=== PATIENT | male | born 1945 | race Caucasian/White ===

== ENCOUNTER 2017-12-05 07:40 | Outpatient (CLI) | payer BC, MEDICARE ==
--- NOTE | 2017-12-05 09:14 | RAD ---
RIGHT KNEE 4 VIEWS: HISTORY: Acute pain in the right knee. Fell off truck. FINDINGS: There are postop changes of total knee arthroplasty in good position and alignment. The metallic denise dware is intact. No acute fracture or dislocation is seen. Vascular calcifications are present. POS: [facility]
== END 2017-12-05 07:41 | disposition home or self-care (01) ==
LOC: TBSIIMAG 07:40
PROVIDERS: ATTEND Family Medicine
DX: M25.561 Pain in right knee (principal)

== ENCOUNTER 2018-01-10 10:07 | Outpatient (CLI) | payer MEDICARE | END 2018-01-10 10:08 | disposition home or self-care (01) | LOC: BICULT 10:07 | PROVIDERS: ATTEND Urology | DX: N43.3 Hydrocele, unspecified (principal); N50.3 Cyst of epididymis | CPT/HCPCS: 76870; 93976 ==

== ENCOUNTER 2018-02-15 11:35 | Outpatient (CLI) | payer MEDICARE | END 2018-02-15 11:36 | disposition home or self-care (01) | LOC: BICULT 11:35 | PROVIDERS: ATTEND Urology | DX: N39.0 Urinary tract infection, site not specified (principal) | CPT/HCPCS: 76770 ==

== ENCOUNTER 2018-04-09 10:27 | Outpatient (CLI) | payer MEDICARE ==
[2018-04-09 11:59] LABS: Hemoglobin 13.7 g/dL (14.0-18.0); Mean Corpuscular HGB CONC 34.6 g/dL (32.0-36.0); Mean Corpuscular Hemoglobin 31.8 pg (27.0-31.0); Mean Corpuscular Volume 91.9 fL (78.0-98.0); Mean Platelet Volume 6.7 fL (7.4-10.4); Platelet Count 293 thou/uL (130-400); RBC Distribution Width 12.7 % (11.5-14.5); Red Blood Cell (RBC) Count 4.32 mill/uL (4.70-6.10); White Blood Cell (WBC) Count 10.7 thou/uL (4.8-10.8)
[2018-04-09 12:14] LABS: Anion Gap 17 mmol/L (10-20); BUN (Urea Nitrogen) 21 mg/dL (8.4-25.7); Calc. Creatinine Clearance 0 mL/min (70-130); Calcium 10.2 mg/dL (7.8-10.44); Carbon Dioxide 23 mmol/L (23-31); Chloride 101 mmol/L (98-107); Estimated GFR-MDRD 63; Glucose 123 mg/dL (83-110); Potassium 4.5 mmol/L (3.5-5.1); Sodium 136 mmol/L (136-145)
== END 2018-04-09 10:28 | disposition home or self-care (01) ==
LOC: LABBT 10:27
PROVIDERS: ATTEND Urology
DX: Z01.812 Encounter for preprocedural laboratory examination (principal); N40.1 Benign prostatic hyperplasia with lower urinary tract symptoms; N39.0 Urinary tract infection, site not specified; N43.3 Hydrocele, unspecified; R35.0 Frequency of micturition
CPT/HCPCS: 80048; 85027

== ENCOUNTER → 2018-04-17 | Day surgery (SDC) | payer MEDICARE ==
[2018-04-09 11:14] VITALS: BMI 42.0
[~2018-04-17] MED LIST: B & O 30 MG SUPP ONE; Dexamethasone 20 MG/5 ML VIAL ONE; Furosemide 20 MG/2 ML VIAL ONE; Ketamine 50 MG/ML VIAL ONE; Levofloxacin 500 mg/D5W 100 ml Premix Bag ONE; Midazolam HCl 2 mg/2 ml Vial ONE; Morphine 4 MG/ML VIAL ONE; Ondansetron HCl/PF 4 MG/2 ML Vial ONE; PROPOFOL 200 MG/20 ML VIAL ONE; Promethazine HCl 25 MG/ML VIAL ONE
--- NOTE | 2018-04-17 12:26 | OP ---
DATE OF PROCEDURE: 04/17/2018 PREOPERATIVE DIAGNOSES: Benign prostatic hypertrophy with infections. POSTOPERATIVE DIAGNOSES: Benign prostatic hypertrophy with infections. PROCEDURE: GreenLight laser vaporization of the prostate with enucleation of the middle lobe using 1 92,371 joules. No complications. SURGEON: Dr. Radha Barnhart SPECIMEN: Prostate. ANESTHESIA: General with laryngeal mask airway. FINDINGS: Adequate opening up of the prostatic urethra and a good stream noted at the end. DRAINS REMAINING: A 20-Colombian 2-way. INDICATIONS: The patient is a 73-year-old male who was followed in the office for multiple issues including recurrent infections shown to have significant BPH. He also had a hydrocele and was uncir cumcised and we discussed surgery for these things as well, but I did not recommend a hydrocelectomy in order to push for a circumcision as he has a partially buried penis and I am not sure just a circu mcision would alleviate that so we proceeded with just GreenLight. The patient was brought into the room by Anesthesia, laid on the table in the supine position. After receiving general anesthetic, legs were placed in lithotomy position and his perineum was prepped an d draped in sterile fashion. Using a 25 Colombian cystoscope and 30 degree lens, urethra was traversed and the bladder inspected. No lesions were noted. The ureteral orifices were identified and preserv ed throughout the case. The middle lobe was then enucleated in small enough pieces that were able to be evacuated out. The lateral lobes and the middle lobe near the veru were quite puffy or intruding so care was taken in order to take these down without injuring the opposite or obstructing gland denise t was pressing in the same area. Power of 80 was used near the bladder neck. Power level of 180 wa s used to the mid gland. The trigonal ridge was taken down to the level of the floor of the bladder near the end of the case using a power of 80. All chips were ensured to be out. Hemostasis was ensu red with the decompressed bladder and the scope had already been taken out once and a good stream not ed so when the scope was put back in, all chips were ensured to be out. No bleeding was noted and so the scope was removed a final time and a 20 Colombian catheter placed to gravity. The patient tolerate d the procedure well and was then awakened and transferred to PACU in stable condition.
== END ==
LOC: SDC 05:49
PROVIDERS: ATTEND Urology
PROC: 0VB08ZZ Excision of Prostate, Via Natural or Artificial Opening Endoscopic (ICD-10-PCS; principal; 2018-04-17)
DX: N40.1 Benign prostatic hyperplasia with lower urinary tract symptoms (principal); N39.41 Urge incontinence; R35.1 Nocturia; R39.11 Hesitancy of micturition; N52.9 Male erectile dysfunction, unspecified; N43.3 Hydrocele, unspecified; E11.9 Type 2 diabetes mellitus without complications; I48.91 Unspecified atrial fibrillation; E78.5 Hyperlipidemia, unspecified; I10 Essential (primary) hypertension; Z79.01 Long term (current) use of anticoagulants; Z79.84 Long term (current) use of oral hypoglycemic drugs; Z79.899 Other long term (current) drug therapy; Z88.1 Allergy status to other antibiotic agents; Z88.2 Allergy status to sulfonamides; Z88.8 Allergy status to other drugs, medicaments and biological substances; Z96.651 Presence of right artificial knee joint
CPT/HCPCS: 88305; 96374; 96375; J1940; J1956; J2250; J2270; J2550

== ENCOUNTER 2019-06-11 10:31 | Outpatient (CLI) | payer MEDICARE ==
--- NOTE | 2019-06-11 14:51 | NM ---
Radionucleotide three-phase bone scan HISTORY: Worsening knee pain. Prior knee replacement. FINDINGS: Heterogeneous uptake at the shoulders, sternoclavicular joints, spine, left knee, and feet. Consistent with degenerative changes. Uptake at the left mandible has the appearance of chronic dental disease. On the blood flow images and blood pool images, increased uptake about the right knee is present, abdiaziz rounding a central photopenic defect consistent with metallic prosthesis. Delayed spot images of the knees show a focal area of markedly increased radiotracer uptake along the far medial margin of t he right medial tibial plateau with otherwise heterogeneously increased uptake involving the distal femur and proximal tibia. Degenerative type uptake about the left knee is also noted. The abnormality of the right knee is less conspicuous on the whole-body images. IMPRESSION: Three-phase increased uptake around the right knee/prosthesis. Suggestive of an acute pro cess such as infection or loosening. Please correlate with current knee radiographs and clinical status. Widespread degenerative type abnormality. Left mandibular uptake likely related to dental disease.
== END 2019-06-11 10:32 | disposition home or self-care (01) ==
LOC: NM 10:31
PROVIDERS: ATTEND Family Medicine
DX: T84.84XA Pain due to internal orthopedic prosthetic devices, implants and grafts, initial encounter (principal); M25.561 Pain in right knee
CPT/HCPCS: 78315; A9503

== ENCOUNTER 2020-06-15 05:27 | Emergency (ER) | payer MEDICARE ==
[2020-06-15] MEDS ORDERED: HYDROcodone/Acetaminophen 5/325 mg Tablet ONE (05:50)
--- NOTE | 2020-06-15 07:17 | CT ---
PRELIMINARY REPORT/[facility]/EMERGENCY AFTER HOURS PROCEDURE EXAM: CT Head Without Intravenous Contrast. CLINICAL HISTORY: Patient presents after a fall while at rehab. He was getting out of bed when he thought his walker wa s locked. It was not and it rolled out from under him causing him to fall to the ground TECHNIQUE: Axial computed tomography images of the head/brain without intravenous contrast. COMPARISON: None provided. FINDINGS: BRAIN: No acute intraparenchymal hemorrhage. No mass lesion. No CT evidence for acute territorial infarct. N o midline shift or extra-axial collection. Some focal encephalomalacia in the right frontal lobe. VENTRICLES: No hydrocephalus. ORBITS: The orbits are unremarkable. SINUSES AND MASTOIDS: The paranasal sinuses and mastoid air cells are clear. SOFT TISSUES: No significant facial or scalp soft tissue swelling evident. No radiopaque foreign body is seen. BONES: No acute skull fracture. IMPRESSION: No acute intracranial abnormality. ELECTRONICALLY SIGNED BY: Fernando Goss MD Jun 15, 2020 6:03:58 AM TRADING ANALYST This report is intended for review by the ordering physician only, in accordance of law. If you recei ve this report in error, please call [facility] at [phone]. FINAL REPORT Exam: Head CT without contrast HISTORY: Fall. Trauma. Pain. COMPARISON: none FINDINGS: Hemorrhage: No intraparenchymal hemorrhage or extra-axial hematoma. Brain parenchyma: Cortical bean-white matter differentiation is preserved. No mass effect or midline shift. Basilar cisterns are patent.Right frontal lobe encephalomalacia and gliosis, due to remote insult. Ventricular system: Ventricles and sulci are patent and symmetric. Calvarium: Intact. Sinuses and mastoid air cells: Adequate aeration. IMPRESSION: 1. This report is in agreement with initial report by [facility]. 2. No acute intracranial process. Code QA Transcribed Date/Time: 06/15/2020 7:44 AM
--- NOTE | 2020-06-15 07:54 | RAD ---
RADIOGRAPH RIGHT KNEE 4 VIEWS: DATE: 06/15/2020 HISTORY: 75-year-old male with acute traumatic right knee pain due to fall FINDINGS: Resurfacing changes of articular surfaces of distal femur, patella, and tibial plateau. Metallic pros theses cover the resurfaced articular surfaces of distal femur. Edema or hematoma in the soft tissues of the thigh and knee indicate either recent status of surgery, acute traumatic soft tissue i njury, or combination of both. Anterior skin wong are present. Visible only on the lateral view, there is curvilinear lucency at the posterior aspect of the proximal tibial metaphysis. This may or m ay not be a nondisplaced acute fracture. The presence of cement and absence of recently removed hardware from the proximal tibia, together with diffuse osteopenia, decreases the sensitivity in the detection for nondisplaced and mildly displaced acute fractures. No grossly displaced fracture is seen. IMPRESSION: 1. Very recently status post total right knee replacement arthroplasty or removal of metallic hardwar e from proximal tibia. 2. Questionable nondisplaced acute fracture of proximal tibial metaphysis. 3.) Recommend short interval follow-up.
== END 2020-06-15 07:42 | disposition home or self-care (01) ==
LOC: ERS 05:27
DX: S51.012A Laceration without foreign body of left elbow, initial encounter (principal); M25.561 Pain in right knee; E03.9 Hypothyroidism, unspecified; E78.5 Hyperlipidemia, unspecified; I10 Essential (primary) hypertension; E11.9 Type 2 diabetes mellitus without complications; Z79.899 Other long term (current) drug therapy; W06.XXXA Fall from bed, initial encounter
CPT/HCPCS: 70450

== ENCOUNTER 2020-08-20 04:24 | Inpatient (IN) | payer MEDICARE ==
[2020-08-20] MEDS ORDERED: Acetaminophen 500 MG TAB ONE (05:15)
[2020-08-20 05:31] LABS: ALT (SGPT) Less than 7 U/L (8-55); AST (SGOT) 9 U/L (5-34); Albumin 3.7 g/dL (3.4-4.8); Alkaline Phosphatase 60 U/L (40-110); Anion Gap 20 mmol/L (10-20); BUN (Urea Nitrogen) 18 mg/dL (8.4-25.7); Bilirubin, Total 0.9 mg/dL (0.2-1.2); CK (CPK) 83 U/L (30-200); Calc. Creatinine Clearance 0 mL/min (70-130); Calcium 9.2 mg/dL (7.8-10.44); Carbon Dioxide 20 mmol/L (23-31); Chloride 97 mmol/L (98-107); Globulin 3.9 g/dL (2.4-3.5); Glucose 176 mg/dL (83-110); Potassium 3.5 mmol/L (3.5-5.1); Protein, Total 7.6 g/dL (5.8-8.1); Sodium 133 mmol/L (136-145)
[2020-08-20 05:48] LABS: Hemoglobin 11.1 g/dL (14.0-18.0); Mean Corpuscular HGB CONC 32.8 g/dL (32.0-36.0); Mean Corpuscular Hemoglobin 30.1 pg (27.0-31.0); Mean Corpuscular Volume 91.9 fL (78.0-98.0); Mean Platelet Volume 7.2 fL (7.4-10.4); Platelet Count 347 thou/uL (130-400); RBC Distribution Width 14.6 % (11.5-14.5); Red Blood Cell (RBC) Count 3.69 mill/uL (4.70-6.10)
[2020-08-20 05:49] LABS: Band 23 % (5-11); Eosinophils 1 % (0-10); Lymphocytes 4 % (21-51); MDiff Complete? YES; Monocytes 5 % (0-10); Neutrophil 67 % (42-75)
[2020-08-20] MEDS ORDERED: Vancomycin 1 GM/200 ML BAG ONE (06:04)
[2020-08-20] MEDS ORDERED: Cefepime 2 GM VIAL ONE ×2 (06:04→06:06)
[2020-08-20 07:52] LABS: SARS-CoV-2 NAA Rapid Test Not Detected (NotDetected)
[2020-08-20] MEDS ORDERED: Acetaminophen 650 MG Suppository PR PRN (08:03)
[2020-08-20] MEDS ORDERED: Acetaminophen 325 MG TAB PO PRN (08:03)
[2020-08-20 08:05] LABS: Bilirubin Negative (Negative); Blood, Urine Negative (Negative); Clarity Clear (Clear); Glucose, Urine (Dipstick) Normal (Negative); Ketone, Urine Negative (Negative); Leukocyte Negative Leu/uL (Negative); Nitrite Negative (Negative); Protein, Urine (Dipstick) Negative (Neg-Trace); Specific Gravity, Urine 1.013 (1.002-1.036); Urobilinogen Normal mg/dL (Less than 2)
[2020-08-20] MEDS ORDERED: Dextrose 50% Abboject 50 ML SYRINGE SLOW IVP PRN (08:09)
[2020-08-20] MEDS ORDERED: HumaLOG 300 UNITS/3 ML VIAL SC PRN ×2 (08:09)
[2020-08-20] MEDS ORDERED: Dextrose 5% in Water 1,000 ML IV PRN (08:09)
--- NOTE | 2020-08-20 08:32 | RAD ---
RADIOGRAPH CHEST 1 VIEW: DATE: 08/20/2020 TIME: 4:38 AM HISTORY: 75-year-old male with chest pain COMPARISON: none FINDINGS: Cardiomegaly. Mild faint patchy small infiltrate at right base, and at left midlung zone. No pneumothorax. Hypoinflated lungs. IMPRESSION: 1) cardiomegaly. 2) mild infiltrates
--- NOTE | 2020-08-20 08:33 | PDOC.HHP ---
Hospitalist HPI - History of Present Illness History of Present Illness: ADMISSION DATE: 08/20/2020 TIME OF ASSESSMENT: 0730 PRIMARY CARE PHYSICIAN: Dr. Jaskaran Coronel CHIEF COMPLAINT: Generalized weakness and presyncope HPI: This is a 75-year-old gentleman who was brought into the emergency department via EMS for sudden generalized weakness and feeling as if he was going to pass out. He apparently got up to use the bathroom early hours this morning and suddenly felt weak. He leaned over and rested his head on the sink but was unable to stand or move. He banged on the wall to get his 's attention who then was able to bring a chair for him to sit on. He did not fall or lose consciousness at any time. Was not disoriented but states he does if he began feeling unwell prior to this episode. In recent days he has been experiencing occasional left-sided stabbing chest pain which she says lasts a few seconds. At times it wakes him up from his sleep which prompted him to get up and walk to the bathroom. He is unsure if he had a similar episode this morning. He was seen by Dr. Veronica who prescribed Protonix yesterday, which patient has yet to start. He was previously on Prilosec but has not been taking it recently. According to his daughter who is at bedside the patient has had some general deconditioning since May 2020 after having a right knee replacement. He was requiring more help which prompted the family to move in and take turns caring for him as well as his . Since 2 weeks ago his self-care as well as his 's have improved which prompted their children to move back to their respective homes however they do check on them daily and home health assistance is in place. The patient was noted by family to have slight slurring of his speech and it wasn't until recently that his revealed an episode this past summer in which he developed acute unresponsiveness though awake followed by slurred speech and dysgraphia while writing a check. The symptoms improved and he did not seek medical attention. Since that time he has had some residual slurring. At present he denies experiencing any chest pain. Denies any extremity weakness or numbness. No facial weakness or numbness. Further changes with his speech have not been noted. He denies any dizziness or spinning sensation. No headaches. He has had a persistent dry cough but no associated shortness of breath or hemoptysis. Denies any urinary complaints and has had normal bowel movements. He has been dealing with a decreased appetite for the last few weeks but denies any nausea or vomiting. All other review of systems are negative. ED COURSE: Per EMS reports the patient did experience chest pain prior to getting up and walking to the bathroom. His blood pressure with EMS was 88/52 and heart rate was 110. It did improve to 130/90. EKG done in the emergency department showed atrial fibrillation with controlled ventricular response. Heart rate 100. Chest x-ray done showed mild cardiomegaly and prominent pulmonary vasculature. Laboratory studies done demonstrated a white cell count of 20, hemoglobin 11.1, hematocrit 33.9, platelets 347, bands 23%. Sodium 133, potassium 3.5, BUN 18, creatinine 1.53, GFR 44, glucose 126, lactic acid 1.9, LFTs normal, troponin negative, CK 83, BNP 383.9, albumin 3.7. He was started on IV antibiotics with cefepime and vancomycin for unknown source of infection. Urinalysis and urine culture were done, results pending. Blood cultures done as well and pending. PAST MEDICAL HISTORY: 1. Hypothyroidism 2. Hyperlipidemia 3. Essential hypertension 4. Chronic atrial fibrillation 5. BPH 6. Type 2 diabetes myelitis 7. Sleep apnea 8. Osteoarthritis 9. Obesity PAST SURGICAL HISTORY: 1. Status post right total knee replacement 2. BPH surgery SOCIAL HISTORY: Patient lives at home with his and both have assistance through home health. He walks using a walker since the knee replacement. Denies any tobacco use or alcohol consumption. FAMILY HISTORY: Noncontributory ALLERGIES: Cipro Ibuprofen Sulfa CURRENT MEDICATIONS: 1. Tylenol with codeine 2. Amlodipine 10 mg p.o. daily 3. Eliquis 5 mg p.o. twice daily 4. Lisinopril 10 mg p.o. daily 5. Metformin 1000 mg p.o. twice daily 6. Potassium chloride 20 mEq p.o. daily 7. Senna 2 tablets p.o. twice daily 8. Simvastatin 40 mg p.o. daily 9. Bisoprolol fumarate 10 mg p.o. daily 10. Fenofibrate 145 mg p.o. daily 11. Ferrous gluconate 324 mg p.o. twice daily 12. Flexeril 5 mg p.o. twice daily 13. Lidocaine patch 14. Oxybutynin 10 mg p.o. at bedtime 15. Finasteride 5 mg p.o. daily 16. Furosemide 40 mg p.o. twice daily 17. Levothyroxine 75 mcg p.o. daily 18. Terazosin 10 mg p.o. daily 19. Thera M 1 tablet p.o. daily - Exam General Appearance: NAD, awake alert General - other findings: VS: Temp 98, HR 93, BP 109/54, RR 20, O2 sat 96% on room air. Eye: PERRL, anicteric sclera ENT: normocephalic atraumatic, no oropharyngeal lesions Neck: supple, no lymphadenopathy Heart: RRR, normal peripheral pulses Respiratory: CTAB, no wheezes, no rales, no ronchi, normal chest expansion Gastrointestinal: soft, non-tender, non-distended, normal bowel sounds Extremities: no edema Skin: normal turgor, no lesions, no rashes Neurological: cranial nerve grossly intact, normal sensation to touch Musculoskeletal: normal tone, normal strength, no muscle wasting Psychiatric: normal affect, normal behavior, A&O x 3 Hospitalist Results - Labs Result Diagrams: 08/20/20 04:53 08/20/20 04:53 Lab results: WBC 20.0 thou/uL (4.8-10.8) H 08/20/20 04:53 Hgb 11.1 g/dL (14.0-18.0) L 08/20/20 04:53 Hct 33.9 % (42.0-52.0) L 08/20/20 04:53 MCV 91.9 fL (78.0-98.0) 08/20/20 04:53 Plt Count 347 thou/uL (130-400) 08/20/20 04:53 Band Neuts % (Manual) 23 % (5-11) H 08/20/20 04:53 Sodium 133 mmol/L (136-145) L 08/20/20 04:53 Potassium 3.5 mmol/L (3.5-5.1) 08/20/20 04:53 Chloride 97 mmol/L (98-107) L 08/20/20 04:53 Carbon Dioxide 20 mmol/L (23-31) L 08/20/20 04:53 BUN 18 mg/dL (8.4-25.7) 08/20/20 04:53 Creatinine 1.53 mg/dL (0.7-1.3) H 08/20/20 04:53 Glucose 176 mg/dL (83-110) H 08/20/20 04:53 Lactic Acid 1.9 mmol/L (0.5-2.2) 08/20/20 05:33 Calcium 9.2 mg/dL (7.8-10.44) 08/20/20 04:53 Total Bilirubin 0.9 mg/dL (0.2-1.2) 08/20/20 04:53 AST 9 U/L (5-34) 08/20/20 04:53 ALT Less than 7 U/L (8-55) L 08/20/20 04:53 Alkaline Phosphatase 60 U/L (40-110) 08/20/20 04:53 Creatine Kinase 83 U/L (30-200) 08/20/20 04:53 Troponin I 0.026 ng/mL (< 0.028) 08/20/20 04:53 B-Natriuretic Peptide 383.9 pg/mL (0-100) H 08/20/20 04:53 Serum Total Protein 7.6 g/dL (5.8-8.1) 08/20/20 04:53 Albumin 3.7 g/dL (3.4-4.8) 08/20/20 04:53 Urine Ketones Negative mg/dL (Negative) 08/20/20 05:52 Urine Blood Negative (Negative) 08/20/20 05:52 Urine Nitrite Negative (Negative) 08/20/20 05:52 Ur Leukocyte Esterase Negative Edu/uL (Negative) 08/20/20 05:52 Hospitalist H&P A/P - Problem (1) Sepsis due to undetermined organism Code(s): A41.9 - SEPSIS, UNSPECIFIED ORGANISM Status: Acute (2) Pre-syncope Status: Acute (3) ARGENIS (acute kidney injury) Code(s): N17.9 - ACUTE KIDNEY FAILURE, UNSPECIFIED Status: Acute (4) Bandemia Code(s): D72.825 - BANDEMIA Status: Acute (5) Diabetes mellitus type 2 in obese Code(s): E11.69 - TYPE 2 DIABETES MELLITUS WITH OTHER SPECIFIED COMPLICATION; E66.9 - OBESITY, UNSPECIFIED Status: Chronic (6) BPH (benign prostatic hyperplasia) Code(s): N40.0 - BENIGN PROSTATIC HYPERPLASIA WITHOUT LOWER URINRY TRACT SYMP Status: Chronic (7) Chronic atrial fibrillation Code(s): I48.20 - CHRONIC ATRIAL FIBRILLATION, UNSPECIFIED Status: Chronic (8) HTN (hypertension) Code(s): I10 - ESSENTIAL (PRIMARY) HYPERTENSION Status: Chronic (9) HLD (hyperlipidemia) Code(s): E78.5 - HYPERLIPIDEMIA, UNSPECIFIED Status: Chronic (10) Status post revision of total replacement of right knee Code(s): Z96.651 - PRESENCE OF RIGHT ARTIFICIAL KNEE JOINT Status: Chronic - Plan Plan: Patient presenting with generalized weakness and presyncope preceeded by CP per EMS reports. Has been having intermittent chest pain for weeks, known to Dr. Veronica who recently prescribed Protonix which he was due to start today. He was tachycardic, hypotensive and febrile on arrival. Had CXR, UA/UCx and blood cultures done prior to initiating IV antibiotics. Of note he has reportedly had stroke like symptoms over the summer and did not seek medical attention at that time. He is being admitted for management of the following: Sepsis, unidentified source BCx and UA/UCx pending Continue IV antibiotics Respiratory Viral Panel ordered Monitor inflammatory markers Tylenol PRN for fever RAGENIS Monitor renal function Gentle hydration, given history of HF Avoid nephrotoxic medications Chest pain Cardiac monitoring Trend troponins Lipid panel with AM labs Start Protonix as recommended by Dr. Veronica Consult Dr. Veronica per family request Generalized weakness/Presyncope- multifactorial (underlying infection and dehydration) Cardiac monitoring as mentioned above Orthostatic BPs Ambulate with assistance PT/OT consulted Echo ordered Speech consulted to assess for risk of aspiration Chronic afib on anticoagulation Chronic and stable Continue Eliquis Type 2 DM Accu-cheks ACHS Insulin sliding scale Hold metformin Hypertension Monitor BP Hold antihypertensives given low BP Hypothyroidism Check TSH and Free T4 Resume levothyroxine once dose verified Hyperlipidemia Resume statin Fasting lipid panel CODE STATUS FULL
[2020-08-20 09:19] LABS: CKMB 2.1 ng/mL (0-6.6)
[2020-08-20 09:27] VITALS: BMI 32.7
[2020-08-20] MEDS: Sodium Chloride 0.9% 500 ML IV SCH (11:49)
--- NOTE | 2020-08-20 14:36 | ULT ---
EXAM: Bilateral lower extremity venous Doppler US HISTORY: bilateral lower extremity edema and pain FINDINGS: Grayscale, color-flow, Doppler evaluation, spectral analysis of the bilateral lower extremities venou s structures is performed with 2-D imaging. The bilateral common femoral, superficial femoral, popliteal, posterior tibial, proximal greater saphenous and profunda femoral veins are imaged. There is normal luminal compressibility, flow, and augmentation in the visualized deep venous structu res of the bilateral lower extremities. IMPRESSION: No evidence of a deep vein thrombosis in either lower extremity.
--- NOTE | 2020-08-20 17:40 | CON ---
DATE OF CONSULTATION: 08/20/2020 REASON FOR CONSULTATION: Presyncope. PRIMARY REPAIRER TYPEWRITER: Franky Veronica MD. HISTORY OF PRESENT ILLNESS: Mr. Hyatt is a pleasant 75-year-old white gentleman, who comes to the hospital for presyncope and generalized weakness. He is very well known to myself. He follows up in the office for atrial fibrillation as well as mild to moderate aortic valve stenosis on most recent evaluation. He states he was at home and felt like he was close to passing out. His was able to bring in him a chair. He never lost consciousness. EMS was called and his blood pressure was in 80s/50s on arrival with a heart rate in the 110s. He is feeling pretty much back to normal. Denies any cough. He has been noticing for the last 3 weeks a mild chest pain in the middle of the night that wakes him up. He has to stand up and walk around and that make the pain go away. He was advised to start a PPI, this may be related to acid reflux as he had been complaining of some dysphagia. He never started this and just came into the hospital because of this recent episode. Currently on my evaluation, he denies any chest pain, tightness, or pressure. No shortness of breath. He has chronic lower extremity edema and is on chronic anticoagulation with Eliquis for atrial fibrillation. Family states that about 6 months ago back in summer, he had episodes of slurred speech that they thought were related to him having had a stroke or mini-stroke, TIA. He never sought medical attention for this. PAST MEDICAL HISTORY: 1. Hypothyroidism. 2. Hyperlipidemia. 3. Hypertension. 4. Chronic atrial fibrillation. 5. BPH. 6. Type 2 diabetes. 7. Sleep apnea. 8. Osteoarthritis. 9. Obesity. 10. Mild to moderate aortic valve stenosis. SURGICAL HISTORY: 1. Right total knee replacement. 2. BPH. SOCIAL HISTORY: Lives at home. No alcohol, tobacco, or drugs. FAMILY HISTORY: Noncontributory. OUTPATIENT MEDICATIONS: Include; 1. Tylenol with codeine p.r.n. 2. Amlodipine 10 mg a day. 3. Eliquis 5 mg b.i.d. 4. Lisinopril 10 mg a day. 5. Metformin 1000 mg twice a day. 6. Potassium chloride 20 mEq a day. 7. Senna p.r.n. 8. Simvastatin 40 mg at bedtime. 9. Bisoprolol 10 mg a day. 10. Fenofibrate 145 mg a day. 11. Ferrous gluconate twice a day. 12. Flexeril. 13. Lidocaine patch. 14. Oxybutynin at bedtime. 15. Finasteride 5 mg a day. 16. Lasix 40 mg twice a day. 17. Levothyroxine 75 mcg a day. 18. Terazosin 10 mg a day. 19. Thera-M daily. ALLERGIES: CIPRO, IBUPROFEN, AND SULFA DRUGS. REVIEW OF SYSTEMS: A 12-point review of systems was done and was found to be negative other than stated in the history of present illness. PHYSICAL EXAMINATION: VITAL SIGNS: Temperature 98.4, pulse 78, respiratory rate 16, saturations 96% on room air, blood pressure 106/57. GENERAL: Awake, alert, oriented x3, in no distress. HEENT: Normocephalic and atraumatic. NECK: Supple. LUNGS: Clear. CARDIOVASCULAR: S1 and S2. There is a grade 3/6 systolic murmur at the right upper sternal border consistent with history of aortic stenosis, unchanged from last physical exam about a year ago. ABDOMEN: Soft. Positive bowel sounds. EXTREMITIES: 3+ edema, unchanged. SKIN: Warm and dry. LABORATORY DATA: Laboratory work was reviewed. White count of 20,000 on arrival, hemoglobin of 11, hematocrit and 33, platelet count of 347. Chemistry showed sodium of 133, potassium is 3.5, anion gap of 20, BUN of 18, creatinine 1.53, this is compared to his normal creatinine of 1.07, likely related to episodes of low blood pressure. AST and ALT are unremarkable. Troponin was negative x3 0.02, 0.05, 0.04. BNP was 383. TSH is 5.14, but free T4 is normal. Albumin of 3.7. UA was unremarkable. COVID PCR serology was not detected, and influenza A and B were both negative. Echocardiogram done today showed an EF of 60% to 65%, with moderate aortic valve stenosis, valve area 1.14 cm2. His max velocity was 3.9 m/sec and a mean gradient of 31 mmHg. ASSESSMENT AND PLAN: 1. Presyncope. 2. Possible infiltrates. 3. Dysphagia and slurred speech, possible stroke/transient ischemic attack. 4. Chronic atrial fibrillation, on chronic anticoagulation with Eliquis. 5. Chronic lower extremity edema. PLAN: 1. Aortic valve is close to being severe, however, not at the severe range as the worse is looked, as he has been followed for some time for this. Last echo was back in March and at that point, it was just [id number]. This time it looks a little more moderate, closer to severe, but not quite there yet. Unlikely that his symptoms were related to aortic valve stenosis. 2. We will get an MRI of the brain. Hopefully, his knee replacement is not hindrance to this. If not, we will switch that to a CT of the brain. We have to make sure that this is not related to a stroke that he had in the past. 3. His dysphagia maybe causing him to have aspiration pneumonitis and that maybe the reason why he has right lower lobe infiltrates. Already on antibiotics per primary team. 4. We will cut back some on his blood pressure medications as his blood pressure is somewhat on the low side. Right now, I agree with normal saline at 65 mL/h to try to hydrate and try to get his kidney function a little bit better. Likely it is a little bit dry. I agree with holding on all blood pressure medications as well. Thank you for letting us to participate in the care of your patient. We will continue to follow. Job ID: [id number]
--- NOTE | 2020-08-20 17:57 | CT ---
Exam: Head CT without contrast HISTORY: CVA. Dysphagia. Slurred speech. COMPARISON: 06/15/2020 FINDINGS: Hemorrhage: No intraparenchymal hemorrhage or extra-axial hematoma. Brain parenchyma: Stable encephalomalacia and gliosis in the right frontal lobe. Remainder the cerebr um demonstrates preservation of cortical bean-white white matter differentiation. Minimal chronic small vessel ischemic changes white matter. Remote lacunar infarct involving the genuine of the right internal capsule. Ventricular system: Ventricles and sulci are patent and symmetric. Calvarium: Intact. Sinuses and mastoid air cells: Adequate aeration. IMPRESSION: 1. No acute intracranial process. 2. Remote insult involving the right frontal lobe and genu of the right internal capsule.
[2020-08-20] MEDS ORDERED: Atorvastatin Calcium 20 MG TAB PO SCH (21:00)
[2020-08-20] MEDS: Vancomycin 1 GM in Premix Bag 1 BAG IVPB SCH (21:44)
[2020-08-21] MEDS: Levothyroxine Sodium 125 MCG TAB PO SCH (05:43)
[2020-08-21 06:35] LABS: #Eosinphils 0.2 thou/uL (0.0-0.7); #Lymphocytes 2.2 thou/uL (1.20-3.40); #Monocytes 0.7 thou/uL (0.11-0.59); #Neutrophils 7.5 thou/uL (1.40-6.50); %Basophils 0.4 % (0.0-1.0); %Eosinophils 1.9 % (0.0-10.0); %Lymphocytes 20.4 % (21.0-51.0); %Monocytes 6.3 % (0.0-10.0); Hemoglobin 10.3 g/dL (14.0-18.0); Mean Corpuscular Hemoglobin 30.1 pg (27.0-31.0); Mean Corpuscular Volume 91.2 fL (78.0-98.0); Mean Platelet Volume 7.1 fL (7.4-10.4); Platelet Count 331 thou/uL (130-400); RBC Distribution Width 14.3 % (11.5-14.5); Red Blood Cell (RBC) Count 3.43 mill/uL (4.70-6.10); White Blood Cell (WBC) Count 10.6 thou/uL (4.8-10.8)
[2020-08-21 06:53] LABS: Lactic Acid 0.8 mmol/L (0.5-2.2)
[2020-08-21 06:59] LABS: Anion Gap 10 mmol/L (10-20); BUN (Urea Nitrogen) 16 mg/dL (8.4-25.7); Calc. Creatinine Clearance 106 mL/min (70-130); Calcium 8.5 mg/dL (7.8-10.44); Carbon Dioxide 28 mmol/L (23-31); Chloride 101 mmol/L (98-107); Glucose 111 mg/dL (83-110); Magnesium 1.8 mg/dL (1.6-2.6); Potassium 3.4 mmol/L (3.5-5.1); Sodium 136 mmol/L (136-145)
[2020-08-21] MEDS: Vancomycin 1 GM in Premix Bag 1 BAG IVPB SCH ×2 (08:39→21:53)
[2020-08-21] MEDS: Sodium Chloride 0.9% 500 ML IV SCH ×3 (09:27→19:45)
[2020-08-21] MEDS: Piperacillin/Tazobactam 3.375 GM in Sodium Chloride 0.9% 100 ML IVPB SCH ×3 (10:04→20:55)
--- NOTE | 2020-08-21 10:07 | ULT ---
BILATERAL CAROTID DUPLEX ULTRASOUND: HISTORY: CVA, dysphagia, slurred speech TECHNIQUE: Grayscale, color-flow and spectral Doppler ultrasound imaging of the extracranial carotid artery syst ems was performed bilaterally. FINDINGS: There is plaque formation on both sides. The peak systolic velocity in the right ICA measures 27 cm/s with an end-diastolic velocity of 3 cm/s and a systolic ratio of 0.44. The peak systolic velocity in the left ICA measures 37 cm/s with an end-diastolic velocity of 8 c m/s and a systolic ratio of 0.36. Flow in both vertebral arteries remains antegrade. IMPRESSION: No evidence of hemodynamically significant stenosis
--- NOTE | 2020-08-21 14:36 | PDOC.CPN ---
- Subjective Date: 08/21/20 Time: 14:33 Interval history: He feels better. No angina. No SOB. No new issues. - Review of Systems General: denies: fever/chills, weight/appetite/sleep changes, night sweats, fatigue Respiratory: denies: cough, congestion, shortness of breath, exercise intolerance Cardiovascular: denies: chest pain, palpitation, edema, paroxysmal nocturnal dyspnea, orthopnea Gastrointestinal: denies: nausea, vomiting, diarrhea, constipation, abd pain, GI bleeding Musculoskeletal: denies: pain, tenderness, stiffness, swelling, arthritis/a rthralgias Neurological: denies: numbness, syncope, seizure, weakness - Objective Allergies/Adverse Reactions: Allergies Allergy/AdvReac Type Severity Reaction Status Date / Time ciprofloxacin Allergy Intermediate vomiting, Verified 04/09/18 10:53 tolerates levaquin ibuprofen Allergy Intermediate lips swell Verified 04/09/18 10:53 Sulfa (Sulfonamide Allergy Intermediate "made him Verified 04/09/18 10:53 Antibiotics) feel like climbing up a wall" Visit Medications: Current Medications Acetaminophen (Acetaminophen 325 Mg Tab) 650 mg PO Q4H PRN PRN Reason: Headache/Fever/Mild Pain (1-3) Acetaminophen (Acetaminophen 650 Mg Suppository) 650 mg [place] Q4H PRN PRN Reason: Headache/Fever/Mild Pain (1-3) Atorvastatin Calcium (Atorvastatin Calcium 20 Mg Tab) 20 mg PO HS [facility] Last Admin: 08/20/20 21:43 Dose: 20 mg Documented by: Dextrose/Water (Dextrose 50% Abboject 50 Ml Syringe) 25 gm SLOW IVP PRN PRN PRN Reason: Hypoglycemia Glucagon (Glucagon 1 Mg/Ml Vial) 1 mg IM PRN PRN PRN Reason: Hypoglycemia Dextrose/Water (D5w) 1,000 mls @ 0 mls/hr IV .Q0M PRN PRN Reason: Hypoglycemia Sodium Chloride (Normal Saline 0.9%) 500 mls @ 65 mls/hr IV .Q7H42M [facility] Last Admin: 08/21/20 09:27 Dose: Not Given Documented by: Vancomycin HCl 1 gm/ Device 200 mls @ 200 mls/hr IVPB Q12HR [facility] Last Admin: 08/21/20 08:39 Dose: 200 mls Documented by: Piperacillin Sod/Tazobactam (Sod 3.375 gm/ Sodium Chloride) 100 mls @ 200 mls/hr IVPB 0300,0900,1500,2100 [facility] Last Admin: 08/21/20 10:04 Dose: 100 mls Documented by: Insulin Human Lispro (Humalog 300 Units/3 Ml Vial) 0 units SC .MILD SLIDING SCALE PRN PRN Reason: Mild Correctional Scale Insulin Human Lispro (Humalog 300 Units/3 Ml Vial) 0 units SC .BEDTIME SLIDING SC PRN PRN Reason: Bedtime Correctional Scale Levothyroxine Sodium (Levothyroxine Sodium 125 Mcg Tab) 125 mcg PO 0600 [facility] Last Admin: 08/21/20 05:43 Dose: 125 mcg Documented by: Miscellaneous Medication (Pharmacy To Dose Vancomycin) 1 each IVPB PRN PRN PRN Reason: Pharmacy to dose Pantoprazole Sodium (Pantoprazole 40 Mg Tab) 40 mg PO DAILY [facility] Last Admin: 08/21/20 10:05 Dose: 40 mg Documented by: Sodium Chloride (Flush - Normal Saline 10 Ml Syringe) 10 ml IVF Q12HR PRN PRN Reason: Saline Flush Sodium Chloride (Flush - Normal Saline 10 Ml Syringe) 10 ml IVF PRN PRN PRN Reason: Saline Flush Vital Signs & Weight: Vital Signs Temp Pulse Resp BP BP BP Pulse Ox 08/21/20 11:27 98.4 F 86 18 113/55 L 98 08/21/20 08:39 98 08/21/20 08:00 98.0 F 82 18 136/69 133/67 126/96 H 98 08/21/20 04:00 97.5 F L 74 16 115/62 96 Admit Weight 255 lb Weight 255 lb - Physical Exam General: alert & oriented x3 HEENT: mucus membranes moist Neck: supple neck Cardiac: irregularly regular Lungs: clear to auscultation Neuro: grossly intact Abdomen: active bowel sounds Extremities: 1+ LE edema Skin: clear Musculoskeletal: no pain - Labs Result Diagrams: 08/21/20 06:21 08/21/20 06:21 Troponin/CKMB CK-MB (CK-2) 2.1 ng/mL (0-6.6) 08/20/20 08:22 Troponin I 0.049 ng/mL (< 0.028) H 08/20/20 10:56 - Assessment/Plan Assessment/Plan: 1. Moderate aortic valve stenosis 2. Possible pneumonia, aspiration? 3. Small lacunar infarct 4. Chronic afib on Eliquis with good compliance. PLAN: - Small lacunar stroke may have been primary cause of event in Mid summer last year. Not caused by embolic phenomenon but by a local arteriolar occlusion. - Continue Eliquis for cortical stroke prophylaxis. - Abs per primary team. - CV stable. - Will sign off. Please call with any questions.
[2020-08-21] MEDS ORDERED: Cyclobenzaprine 10 MG TAB PO PRN (16:05)
--- NOTE | 2020-08-21 16:08 | PDOC.HOSPP ---
- Subjective Encounter Date: 08/21/20 Subjective: Patient report he is feeling generally well. He has no new or specific complaints today. When asked about his history of other neurologic symptoms he indicates that he is been told that these things were happening by his family more than he actually reported them himself. - Objective Vital Signs & Weight: Vital Signs (12 hours) Temp Pulse Resp BP BP BP Pulse Ox 08/21/20 11:27 98.4 F 86 18 113/55 L 98 08/21/20 08:39 98 08/21/20 08:00 98.0 F 82 18 136/69 133/67 126/96 H 98 Weight Admit Weight 255 lb Weight 255 lb I&O: 08/20/20 08/21/20 08/22/20 06:59 06:59 06:59 Intake Total 2495 Output Total 1025 Balance 1470 Result Diagrams: 08/21/20 06:21 08/21/20 06:21 Additional Labs: Accuchecks 08/21/20 08/21/20 08/20/20 11:09 05:41 20:28 POC Glucose 155 H 106 H 167 H Hospitalist ROS - Medication Medications: Active Medications Generic Name Dose Route Start Last Admin Trade Name Freq PRN Reason Stop Dose Admin Atorvastatin Calcium 20 mg 08/20/20 21:00 08/20/20 21:43 Atorvastatin Calcium 20 Mg Tab PO 20 mg HS SAMANTHA Administration Sodium Chloride 500 mls @ 65 mls/hr 08/20/20 09:15 08/21/20 10:04 Normal Saline 0.9% IV 500 mls .Q7H42M SAMANTHA Administration Vancomycin HCl 1 gm/ Device 200 mls @ 200 mls/hr 08/20/20 21:00 08/21/20 08:39 IVPB 200 mls Q12HR SAMANTHA Administration Piperacillin Sod/Tazobactam 100 mls @ 200 mls/hr 08/21/20 09:00 08/21/20 15:28 Sod 3.375 gm/ Sodium Chloride IVPB 100 mls 0300,0900,1500,2100 SAMANTHA Administration Levothyroxine Sodium 125 mcg 08/21/20 06:00 08/21/20 05:43 Levothyroxine Sodium 125 Mcg Tab PO 125 mcg 0600 SAMANTHA Administration Pantoprazole Sodium 40 mg 08/21/20 09:00 08/21/20 10:05 Pantoprazole 40 Mg Tab PO 40 mg DAILY SAMANTHA Administration - Exam General Appearance: NAD, awake alert General - other findings: Wearing nasal BiPAP Heart: no murmur, no gallops, no rubs, normal peripheral pulses, irregular, II/IV Respiratory: CTAB, no wheezes, no rales, no ronchi, normal chest expansion, no tachypnea, normal percussion Gastrointestinal: soft, non-tender, non-distended, normal bowel sounds, no palpable masses, no hepatomegaly, no splenomegaly, no bruit Extremities: no cyanosis, no clubbing, no edema Skin: normal turgor Neurological: no focal deficits Musculoskeletal: normal tone, normal strength Psychiatric: normal affect, normal behavior, A&O x 3 Hosp A/P (1) Sepsis due to undetermined organism Code(s): A41.9 - SEPSIS, UNSPECIFIED ORGANISM Status: Acute (2) Aspiration pneumonitis Code(s): J69.0 - PNEUMONITIS DUE TO INHALATION OF FOOD AND VOMIT Status: Acute (3) History of CVA (cerebrovascular accident) Code(s): Z86.73 - PRSNL HX OF TIA (TIA), AND CEREB INFRC W/O RESID DEFICITS Status: Acute (4) Bandemia Code(s): D72.825 - BANDEMIA Status: Acute (5) Pre-syncope Status: Acute (6) Weakness generalized Code(s): R53.1 - WEAKNESS Status: Acute (7) Diabetes mellitus type 2 in obese Code(s): E11.69 - TYPE 2 DIABETES MELLITUS WITH OTHER SPECIFIED COMPLICATION; E66.9 - OBESITY, UNSPECIFIED Status: Chronic (8) BPH (benign prostatic hyperplasia) Code(s): N40.0 - BENIGN PROSTATIC HYPERPLASIA WITHOUT LOWER URINRY TRACT SYMP Status: Chronic (9) Chronic atrial fibrillation Code(s): I48.20 - CHRONIC ATRIAL FIBRILLATION, UNSPECIFIED Status: Chronic (10) HLD (hyperlipidemia) Code(s): E78.5 - HYPERLIPIDEMIA, UNSPECIFIED Status: Chronic (11) HTN (hypertension) Code(s): I10 - ESSENTIAL (PRIMARY) HYPERTENSION Status: Chronic (12) Moderate aortic stenosis Code(s): I35.0 - NONRHEUMATIC AORTIC (VALVE) STENOSIS Status: Acute - Plan Sepsis: Etiology was initially unclear but at this point appears to be most likely related to some aspiration pneumonitis/pneumonia. Pneumonitis/pneumonia: Concerning for possible aspiration issues. Patient does not have significant impairment on his evaluation by speech therapy. He does have evidence of a prior CVA. Continue to treat with appropriate IV antibiotics. Overall appears to be doing well without significant fever at this time. White count and bandemia have essentially resolved. He remains this well tomorrow can likely discharge on p.o. antibiotics. History of CVA: Patient was unaware of his prior CVA. Patient did have some neurologic symptoms occurring over the summer that were not reported were evaluated. Current CTA of the head reveals a right frontal and right internal capsule infarct that are remote. Patient does have chronic A. fib is on Eliquis for that. Will increase his statin dose to 40 mg nightly. After clearing it with cardiology I will consider adding aspirin to his regimen. It is likely that this was more atherosclerotic in nature rather than embolic. Aspirin will be more effective than secondary prevention. However, the patient has a reported allergy to ibuprofen which will need to be i nvestigated further. Chronic atrial fibrillation: Rate controlled. Continue Eliquis. Diabetes mellitus: Blood sugars well controlled. We will resume his home dose of Metformin 1000 mg p.o. twice daily. Hypertension: Patient is on several blood pressure medications. These include NIGEL inhibitor, amlodipine, bisoprolol. We will resume the lisinopril but hold the amlodipine and bisoprolol given the relative low blood pressure readings (especially diastolic). Concerning that his numbers are this low without his usual medications. This could potentially have contributed to his presyncopal symptoms. Hyperlipidemia: We will continue with his atorvastatin but in light of his CVA will increase it to 40 mg daily. BPH: Resume his Terazosin, oxybutynin.. Need to watch his blood pressure on that as well. Disposition: Resuming most of the patient's home medications. Holding off on some of his blood pressure medications. If his blood pressure remains adequately controlled he may be able to discharge with a reduction of his blood pressure regimen and on p.o. antibiotics as early as 08/21/2020.
[2020-08-21] MEDS: metFORMIN 500 MG TAB PO SCH (18:06)
[2020-08-21] MEDS: Furosemide 40 MG TAB PO SCH (19:44)
[2020-08-21] MEDS: Senokot S 8.6-50 MG TAB PO SCH (19:45)
[2020-08-21] MEDS: Atorvastatin Calcium 40 MG TAB PO SCH (19:45)
[2020-08-21] MEDS: Apixaban 5 MG TAB PO SCH (19:45)
[2020-08-21 20:41] LABS: Vancomycin, Trough 13.6 ug/mL
[2020-08-22] MEDS: Sodium Chloride 0.9% 500 ML IV SCH ×3 (04:17→16:23)
[2020-08-22] MEDS: Piperacillin/Tazobactam 3.375 GM in Sodium Chloride 0.9% 100 ML IVPB SCH ×4 (04:17→19:56)
[2020-08-22] MEDS: Levothyroxine Sodium 125 MCG TAB PO SCH (05:40)
[2020-08-22] MEDS: Vancomycin 1 GM in Premix Bag 1 BAG IVPB SCH ×2 (08:23→19:56)
[2020-08-22] MEDS: Senokot S 8.6-50 MG TAB PO SCH ×2 (08:24→19:59)
[2020-08-22] MEDS: Fenofibrate Nanocrystallized 145 MG TAB PO SCH (08:24)
[2020-08-22] MEDS: Lisinopril 20 MG TAB PO SCH (08:25)
[2020-08-22] MEDS: Furosemide 40 MG TAB PO SCH ×3 (08:25→16:15)
[2020-08-22] MEDS: Multivitamin W/ Minerals 1 TAB PO SCH (08:25)
[2020-08-22] MEDS: metFORMIN 500 MG TAB PO SCH ×2 (08:25→19:20)
[2020-08-22] MEDS: Ferrous Gluconate 324 MG TAB PO SCH (08:26)
[2020-08-22] MEDS: Potassium Chloride 20 MEQ TAB PO SCH (08:26)
[2020-08-22] MEDS: Apixaban 5 MG TAB PO SCH ×2 (08:28→19:56)
[2020-08-22] MEDS: Oxybutynin ER 5 MG TAB PO SCH (08:28)
[2020-08-22] MEDS: Terazosin HCl 5 MG CAP PO SCH (08:29)
[2020-08-22] MEDS ORDERED: Amlodipine 10 MG TAB PO SCH (09:00)
[2020-08-22] MEDS ORDERED: Non-Formulary Item 1 EACH (Bisoprolol Fumarate [Bisoprolol Fumarate] 10 MG Tablet) PO SCH (09:00)
[2020-08-22] MEDS ORDERED: Artificial Tear Sol 15 ML BOT EA EYE PRN (10:19)
--- NOTE | 2020-08-22 18:37 | PDOC.HOSPP ---
- Subjective Encounter Date: 08/22/20 Encounter Time: 17:45 Subjective: f/u for sepsis likely due to bacteremia with strep spp. Receiving Zosyn/Vancomycin currently. Overall feels better but remains weak. - Objective Vital Signs & Weight: Vital Signs (12 hours) Temp Pulse Resp BP Pulse Ox 08/22/20 16:16 85 112/56 L 08/22/20 08:00 98.5 F 86 16 135/63 95 Weight Admit Weight 255 lb Weight 255 lb I&O: 08/21/20 08/22/20 08/23/20 06:59 06:59 06:59 Intake Total 2495 2870 Output Total 1025 2350 Balance 1470 520 Result Diagrams: 08/21/20 06:21 08/21/20 06:21 Additional Labs: Accuchecks 08/22/20 08/22/20 08/22/20 16:05 11:01 05:43 POC Glucose 115 H 132 H 112 H 08/21/20 20:58 POC Glucose 132 H Microbiology 08/20/20 05:52 Urine Straight Catheter Urine Culture - Final Presumptive Enterococcus sp. 08/20/20 05:33 Venous blood - Right Arm Blood Culture - Preliminary Gram Positive Cocci 08/20/20 05:15 Venous blood - Right Arm Blood Culture - Preliminary Streptococcus species Laboratory Tests 03/14/19 08/20/20 08/20/20 10:04 04:53 04:53 WBC 20.0 H Band Neuts % (Manual) 23 H Creatinine 1.53 H C-Reactive Protein B-Natriuretic Peptide 315.2 H Free T4 TSH 3rd Generation Influenza A RNA INAAT Influenza B RNA INAAT SARS-CoV-2 Rap RNA(RT-PCR) 08/20/20 08/20/20 08/20/20 04:53 04:53 06:33 WBC Band Neuts % (Manual) Creatinine C-Reactive Protein B-Natriuretic Peptide 383.9 H Free T4 TSH 3rd Generation 5.1419 H Influenza A RNA INAAT Not Detected Influenza B RNA INAAT Not Detected SARS-CoV-2 Rap RNA(RT-PCR) Not Detected 08/20/20 08/20/20 08/21/20 08:22 08:22 06:21 WBC Band Neuts % (Manual) Creatinine C-Reactive Protein 8.15 H 8.37 H B-Natriuretic Peptide Free T4 1.19 TSH 3rd Generation Influenza A RNA INAAT Influenza B RNA INAAT SARS-CoV-2 Rap RNA(RT-PCR) Radiology Reviewed by me: Yes (CT brain - no acute process, remote infarcts noted) Hospitalist ROS - Medication Medications: Active Medications Generic Name Dose Route Start Last Admin Trade Name Freq PRN Reason Stop Dose Admin Apixaban 5 mg 08/21/20 21:00 08/22/20 08:28 Apixaban 5 Mg Tab PO 5 mg BID SAMANTHA Administration Artificial Tears 0 drop 08/22/20 10:19 08/22/20 11:25 Artificial Tear Alicia 15 Ml Bot EA EYE 2 drop PRN PRN Administration DRY EYES Atorvastatin Calcium 40 mg 08/21/20 21:00 08/21/20 19:45 Atorvastatin Calcium 40 Mg Tab PO 40 mg HS SAMANTHA Administration Fenofibrate 145 mg 08/22/20 09:00 08/22/20 08:24 Fenofibrate Nanocrystallized 145 Mg Tab PO 145 mg DAILY SAMANTHA Administration Ferrous Gluconate 324 mg 08/22/20 09:00 08/22/20 08:26 Ferrous Gluconate 324 Mg Tab PO 324 mg DAILY SAMANTHA Administration Furosemide 40 mg 08/22/20 09:00 08/22/20 16:15 Furosemide 40 Mg Tab PO 40 mg 0900,1400 SAMANTHA Administration Sodium Chloride 500 mls @ 65 mls/hr 08/20/20 09:15 08/22/20 16:23 Normal Saline 0.9% IV Not Given .Q7H42M SAMANTHA Vancomycin HCl 1 gm/ Device 200 mls @ 200 mls/hr 08/20/20 21:00 08/22/20 08:23 IVPB 200 mls Q12HR SAMANTHA Administration Piperacillin Sod/Tazobactam 100 mls @ 200 mls/hr 08/21/20 09:00 08/22/20 16:15 Sod 3.375 gm/ Sodium Chloride IVPB 100 mls 0300,0900,1500,2100 SAMANTHA Administration Iron/Minerals/Multivitamins 1 tab 08/22/20 09:00 08/22/20 08:25 Multivitamin W/ Minerals 1 Tab PO 1 tab DAILY SAMANTHA Administration Levothyroxine Sodium 125 mcg 08/21/20 06:00 08/22/20 05:40 Levothyroxine Sodium 125 Mcg Tab PO 125 mcg 0600 SAMANTHA Administration Lisinopril 20 mg 08/22/20 09:00 08/22/20 08:25 Lisinopril 20 Mg Tab PO 20 mg DAILY SAMANTHA Administration Metformin HCl 1,000 mg 08/21/20 17:00 08/22/20 08:25 Metformin 500 Mg Tab PO 1,000 mg BID-WM SAMANTHA Administration Oxybutynin Chloride 10 mg 08/22/20 09:00 08/22/20 08:28 Oxybutynin Er 5 Mg Tab PO 10 mg DAILY SAMANTHA Administration Pantoprazole Sodium 40 mg 08/21/20 09:00 08/22/20 08:25 Pantoprazole 40 Mg Tab PO 40 mg DAILY SAMANTHA Administration Potassium Chloride 20 meq 08/22/20 09:00 08/22/20 08:26 Potassium Chloride 20 Meq Tab PO 20 meq DAILY SAMANTHA Administration Senna/Docusate Sodium 2 tab 08/21/20 21:00 08/22/20 08:24 Senokot S 8.6-50 Mg Tab PO Not Given BID SAMANTHA Terazosin HCl 10 mg 08/22/20 09:00 08/22/20 08:29 Terazosin Hcl 5 Mg Cap PO 10 mg DAILY SAMANTHA Administration - Exam General Appearance: NAD, awake alert Eye: PERRL, anicteric sclera ENT: normocephalic atraumatic, no oropharyngeal lesions Neck: supple, symmetric, no JVD, no thyromegaly, no lymphadenopathy Heart: no gallops, no rubs, normal peripheral pulses, irregular Heart - other findings: S1, S2 Respiratory: CTAB, no wheezes, no rales, no ronchi, normal chest expansion, no tachypnea Gastrointestinal: soft, non-tender, non-distended, normal bowel sounds, no palpable masses Extremities: no cyanosis, no clubbing, no edema Skin: normal turgor, no lesions Neurological: cranial nerve grossly intact, no new deficit Musculoskeletal: normal tone, generalized weakness Psychiatric: A&O x 3, flat affect Hosp A/P (1) Sepsis due to undetermined organism Code(s): A41.9 - SEPSIS, UNSPECIFIED ORGANISM Status: Acute Plan: 2/2 blood cx with gm + cocci appearing to represent strep spp, continue Zosyn/Vancomycin pending final identification (2) ARGENIS (acute kidney injury) Code(s): N17.9 - ACUTE KIDNEY FAILURE, UNSPECIFIED Status: Acute Plan: Improved, continue low-volume IVF's, avoid nephrotoxic meds and limit contrast (3) Diabetes mellitus type 2 in obese Code(s): E11.69 - TYPE 2 DIABETES MELLITUS WITH OTHER SPECIFIED COMPLICATION; E66.9 - OBESITY, UNSPECIFIED Status: Chronic Plan: ISS, serial accuchecks, ADA, Metformin 1000mg BID (4) Chronic atrial fibrillation Code(s): I48.20 - CHRONIC ATRIAL FIBRILLATION, UNSPECIFIED Status: Chronic Plan: Rate controlled currently, continue Eliquis, continue Amlodipine/Bisoprolol - Plan plan discussed w/ family, continue antibiotics, PT/OT, [employer] teacher, speech therapy, out of bed/ambulate, DVT proph w/SCDs Stable currently Continue Vancomycin/Zosyn Continue IVF's another 24h Await final blood cx identification AM lab: BMP, CBC ? Home in 24h
[2020-08-22] MEDS: Atorvastatin Calcium 40 MG TAB PO SCH (19:56)
[2020-08-23] MEDS: Sodium Chloride 0.9% 500 ML IV SCH ×2 (03:15→03:43)
[2020-08-23] MEDS: Piperacillin/Tazobactam 3.375 GM in Sodium Chloride 0.9% 100 ML IVPB SCH ×2 (03:41→09:32)
[2020-08-23] MEDS: Levothyroxine Sodium 125 MCG TAB PO SCH (05:54)
[2020-08-23 07:06] LABS: #Basophils 0.1 thou/uL (0.0-0.2); #Eosinphils 0.2 thou/uL (0.0-0.7); #Lymphocytes 2.2 thou/uL (1.20-3.40); #Monocytes 0.6 thou/uL (0.11-0.59); #Neutrophils 6.5 thou/uL (1.40-6.50); %Basophils 0.9 % (0.0-1.0); %Eosinophils 1.8 % (0.0-10.0); %Lymphocytes 23.1 % (21.0-51.0); %Monocytes 6.2 % (0.0-10.0); Hemoglobin 10.6 g/dL (14.0-18.0); Mean Corpuscular HGB CONC 33.1 g/dL (32.0-36.0); Mean Corpuscular Hemoglobin 30.2 pg (27.0-31.0); Mean Corpuscular Volume 91.4 fL (78.0-98.0); Mean Platelet Volume 6.9 fL (7.4-10.4); Platelet Count 336 thou/uL (130-400); RBC Distribution Width 14.3 % (11.5-14.5); White Blood Cell (WBC) Count 9.6 thou/uL (4.8-10.8)
[2020-08-23 07:24] LABS: Anion Gap 12 mmol/L (10-20); BUN (Urea Nitrogen) 10 mg/dL (8.4-25.7); Calc. Creatinine Clearance 114 mL/min (70-130); Calcium 8.5 mg/dL (7.8-10.44); Carbon Dioxide 25 mmol/L (23-31); Chloride 103 mmol/L (98-107); Glucose 117 mg/dL (83-110); Potassium 3.4 mmol/L (3.5-5.1); Sodium 137 mmol/L (136-145)
[2020-08-23 08:58] VITALS: BP 135/66; TEMP 97.6
[2020-08-23] MEDS: Fenofibrate Nanocrystallized 145 MG TAB PO SCH (09:27)
[2020-08-23] MEDS: Ferrous Gluconate 324 MG TAB PO SCH (09:27)
[2020-08-23] MEDS: Potassium Chloride 20 MEQ TAB PO SCH (09:27)
[2020-08-23] MEDS: Senokot S 8.6-50 MG TAB PO SCH (09:27)
[2020-08-23] MEDS: Terazosin HCl 5 MG CAP PO SCH (09:27)
[2020-08-23] MEDS: Lisinopril 20 MG TAB PO SCH (09:27)
[2020-08-23] MEDS: metFORMIN 500 MG TAB PO SCH (09:28)
[2020-08-23] MEDS: Apixaban 5 MG TAB PO SCH (09:28)
[2020-08-23] MEDS: Multivitamin W/ Minerals 1 TAB PO SCH (09:28)
[2020-08-23] MEDS: Oxybutynin ER 5 MG TAB PO SCH (09:28)
[2020-08-23] MEDS: Furosemide 40 MG TAB PO SCH (09:29)
[2020-08-23] MEDS: Vancomycin 1 GM in Premix Bag 1 BAG IVPB SCH (10:08)
--- NOTE | 2020-08-23 12:49 | DIS ---
DATE OF ADMISSION: 08/20/2020 DATE OF DISCHARGE: 08/23/2020 DISCHARGE DIAGNOSES: 1. Sepsis secondary to Streptococcal species, improved. 2. Acute kidney injury, resolving. 3. Diabetes mellitus type 2, stable. 4. Chronic atrial fibrillation, rate controlled, on chronic anticoagulation with Eliquis. CONSULTATION: Dr. Veronica with Cardiology Service. PERTINENT LABORATORY AND X-RAY FINDINGS: Potassium ranged between 3.4 to 3.5. Lactic acid level ranged between 0.8 to 1.9. Magnesium level 1.8. CRP ranged between 8.15 to 8.37. BNP 384. TSH 5.14, free T4 1.19. CBC showed a white blood cell count ranging between 9.6 to 20.0, hemoglobin ranged between 10.3 to 11.1. Influenza A and B RNA not detected on 08/20/2020. COVID-19 PCR not detected on 08/20/2020. Blood cultures x2 positive for alpha-hemolytic Streptococcal species on 08/20/2020. Urine culture dated 08/20/2020, showed less than 5000 colonies of presumptive Enterococcus species. Portable chest x-ray dated 08/20/2020, showed cardiomegaly with small infiltrate at the right base, likely atelectasis. Bilateral lower extremity venous Doppler study dated 08/20/2020, showed no evidence for DVT. 2D transthoracic echocardiogram dated 08/20/2020, showed ejection fraction of 60% to 65%. Moderate biatrial enlargement. Moderate mitral regurgitation. Heavily calcified aortic valve with mean gradient of 31 mmHg. Small pericardial effusion without tamponade. CT of the brain without contrast dated 08/20/2020, showed no acute intracranial process. Remote infarct of the right frontal lobe and genu of the right internal capsule. Carotid Doppler study dated 08/21/2020, showed no hemodynamically significant stenosis. HOSPITAL COURSE: The patient was initially admitted after presenting with generalized weakness and presyncopal symptoms, initially evaluated in the emergency room. The patient was initially noted with hypotension with tachycardia, receiving IV fluids in the emergency room. The patient also received IV cefepime and vancomycin after concern for a sepsis picture, given the patient's presentation and questionable infiltrates of the right lung base. The patient underwent blood and urine culture evaluation with blood culture showing 2/2 positive for Streptococcal species and urine culture showing less than 5000 colonies of Enterococcus species. The patient continued on broad-spectrum IV antibiotic therapy with vancomycin and cefepime through the entire hospital course. The patient clinically stabilized with general supportive management and IV antibiotics with stable vital signs. The patient's overall weakness had improved by the time of discharge with stabilization of metabolic profile. The patient's blood cultures did show Streptococcal species in 2/2 sets with unclear etiology or source of the Streptococcus. The patient was transitioned to Augmentin 875 mg b.i.d. to complete outpatient antibiotic coverage. Overall, the patient did remain clinically stable during the hospital course. I have examined the patient at the time of discharge and discussed followup instructions. The patient verbalized understanding and agreement, ready for discharge on 08/23/2020. DISCHARGE MEDICATIONS: 1. Augmentin 875 mg one tablet p.o. b.i.d. x10 days. 2. Eliquis 5 mg p.o. b.i.d. 3. Fenofibrate 145 mg p.o. daily. 4. Ferrous gluconate 324 mg p.o. daily. 5. Flexeril 5 mg p.o. b.i.d. p.r.n. 6. Lasix 40 mg p.o. b.i.d. 7. Metformin 1000 mg p.o. b.i.d. 8. Lisinopril 20 mg p.o. daily. 9. Omeprazole 20 mg p.o. daily. 10. Oxybutynin chloride 10 mg p.o. daily. 11. Potassium chloride 20 mEq p.o. daily. 12. Simvastatin 40 mg p.o. at bedtime. 13. Levothyroxine 125 mcg p.o. daily. 14. Terazosin 10 mg p.o. daily. 15. Amlodipine 10 mg p.o. daily, may resume on 08/28/2020. 16. Bisoprolol fumarate 10 mg p.o. daily, may resume on 08/28/2020. 17. Multivitamin one tablet p.o. daily. FOLLOWUP: The patient may follow up with his primary care provider, Dr. Jaskaran Coronel. CONDITION ON DISCHARGE: Stable. ACTIVITY: Ad-konstantin. DIET: ADA and heart healthy. CODE STATUS: Full. DISPOSITION: To home on 08/23/2020. Total time preparing and coordinating discharge is 35 minutes. Job ID: [id number]
== END 2020-08-23 15:41 | disposition home or self-care (01) | DRG 871 ==
LOC: ERS 04:24 → ONC 06:45
PROVIDERS: ADMIT Student in an Organized Health Care Education/Training Program; ATTEND Internal Medicine
DX: A40.8 Other streptococcal sepsis (principal); J69.0 Pneumonitis due to inhalation of food and vomit; I48.20 Chronic atrial fibrillation, unspecified; N17.9 Acute kidney failure, unspecified; Z20.822 Contact with and (suspected) exposure to COVID-19; E03.9 Hypothyroidism, unspecified; E78.5 Hyperlipidemia, unspecified; G47.33 Obstructive sleep apnea (adult) (pediatric); Z96.651 Presence of right artificial knee joint; E66.9 Obesity, unspecified; E11.69 Type 2 diabetes mellitus with other specified complication; E86.0 Dehydration; I35.0 Nonrheumatic aortic (valve) stenosis; N40.0 Benign prostatic hyperplasia without lower urinary tract symptoms; B95.2 Enterococcus as the cause of diseases classified elsewhere; M19.90 Unspecified osteoarthritis, unspecified site; Z88.2 Allergy status to sulfonamides; Z88.1 Allergy status to other antibiotic agents; Z88.6 Allergy status to analgesic agent; Z79.01 Long term (current) use of anticoagulants; Z79.899 Other long term (current) drug therapy; Z79.890 Hormone replacement therapy; Z98.890 Other specified postprocedural states; Z79.84 Long term (current) use of oral hypoglycemic drugs; Z86.73 Personal history of transient ischemic attack (TIA), and cerebral infarction without residual deficits; Z68.32 Body mass index [BMI] 32.0-32.9, adult
CPT/HCPCS: 0240U; 36415; 36416; 51701; 70450; 71045; 80048; 80053; 80202; 81003; 82550; 82553; 83605; 83735; 83880; 84439; 84443; 84484; 85025; 86140; 87040; 87077; 87086; 87149; 87186; 93005; 93306; 93880; 93970; 96365; 96367; J0692; J2543; J3370; J3475; J3490

== ENCOUNTER 2020-10-15 09:36 | Outpatient (CLI) | payer MEDICARE | END 2020-10-15 09:37 | disposition home or self-care (01) | LOC: BICRAD 09:36 | PROVIDERS: ATTEND Family Medicine | DX: R06.02 Shortness of breath (principal) | CPT/HCPCS: 71046 ==

== ENCOUNTER 2020-11-24 13:40 | Inpatient (IN) | payer MEDICARE ==
[2020-11-24 14:57] LABS: #Basophils 0.1 thou/uL (0.0-0.2); #Eosinphils 0.1 thou/uL (0.0-0.7); #Lymphocytes 2.8 thou/uL (1.20-3.40); #Monocytes 0.6 thou/uL (0.11-0.59); #Neutrophils 7.6 thou/uL (1.40-6.50); %Basophils 0.6 % (0.0-1.0); %Eosinophils 0.9 % (0.0-10.0); %Lymphocytes 25.1 % (21.0-51.0); %Neutrophils 68.4 % (42.0-75.0); Hemoglobin 12.5 g/dL (14.0-18.0); Mean Corpuscular HGB CONC 32.5 g/dL (32.0-36.0); Mean Corpuscular Hemoglobin 30.6 pg (27.0-31.0); Mean Platelet Volume 7.5 fL (7.4-10.4); Platelet Count 299 thou/uL (130-400); RBC Distribution Width 15.1 % (11.5-14.5); Red Blood Cell (RBC) Count 4.11 mill/uL (4.70-6.10); White Blood Cell (WBC) Count 11.1 thou/uL (4.8-10.8)
[2020-11-24 15:21] LABS: ALT (SGPT) Less than 7 U/L (8-55); AST (SGOT) 11 U/L (5-34); Albumin 4.1 g/dL (3.4-4.8); Alkaline Phosphatase 27 U/L (40-110); Anion Gap 16 mmol/L (10-20); BUN (Urea Nitrogen) 31 mg/dL (8.4-25.7); Bilirubin, Total 1.2 mg/dL (0.2-1.2); CK (CPK) 80 U/L (30-200); Calc. Creatinine Clearance 0 mL/min (70-130); Calcium 9.8 mg/dL (7.8-10.44); Carbon Dioxide 24 mmol/L (23-31); Chloride 99 mmol/L (98-107); Globulin 3.5 g/dL (2.4-3.5); Glucose 130 mg/dL (83-110); Potassium 3.4 mmol/L (3.5-5.1); Protein, Total 7.6 g/dL (5.8-8.1); Sodium 136 mmol/L (136-145)
[2020-11-24 15:38] LABS: CKMB 1.8 ng/mL (0-6.6)
[2020-11-24] MEDS ORDERED: Furosemide 40 MG/4 ML VIAL ONE (16:19)
[2020-11-24] MEDS ORDERED: Aspirin Chewable 81 MG TAB ONE ×2 (16:19→16:21)
[2020-11-24] MEDS ORDERED: Potassium Chloride 20 MEQ TAB ONE (16:19)
[2020-11-24] MEDS ORDERED: Acetaminophen 650 MG Suppository PR PRN (16:29)
[2020-11-24] MEDS ORDERED: Acetaminophen 325 MG TAB PO PRN (16:29)
[2020-11-24] MEDS ORDERED: Potassium Chloride 20 MEQ TAB PO SCH (16:45)
[2020-11-24] MEDS ORDERED: Insulin Regular 300 UNITS/3 ML VIAL SC PRN ×2 (16:46)
[2020-11-24] MEDS ORDERED: Dextrose 5% in Water 1,000 ML IV PRN (16:46)
[2020-11-24] MEDS ORDERED: Dextrose 50% Abboject 50 ML SYRINGE SLOW IVP PRN (16:46)
[2020-11-24 17:43] VITALS: BMI 32.5
[2020-11-24] MEDS ORDERED: Furosemide 40 MG/4 ML VIAL SLOW IVP SCH (18:00)
[2020-11-24 19:31] LABS: Troponin I 0.036 ng/mL (< 0.028)
[2020-11-24] MEDS: Atorvastatin Calcium 20 MG TAB PO SCH (20:41)
[2020-11-24] MEDS: Apixaban 5 MG TAB PO SCH (20:42)
[2020-11-25 01:57] LABS: SARS-CoV-2 PCR by NAA Not Detected (NotDetected)
[2020-11-25 04:29] LABS: #Basophils 0.1 thou/uL (0.0-0.2); #Eosinphils 0.3 thou/uL (0.0-0.7); #Lymphocytes 3.4 thou/uL (1.20-3.40); #Monocytes 0.7 thou/uL (0.11-0.59); #Neutrophils 5.6 thou/uL (1.40-6.50); %Basophils 0.7 % (0.0-1.0); %Eosinophils 3.1 % (0.0-10.0); %Lymphocytes 34.1 % (21.0-51.0); %Monocytes 6.6 % (0.0-10.0); %Neutrophils 55.4 % (42.0-75.0); Hemoglobin 11.9 g/dL (14.0-18.0); Mean Corpuscular HGB CONC 32.7 g/dL (32.0-36.0); Mean Corpuscular Hemoglobin 30.8 pg (27.0-31.0); Mean Corpuscular Volume 94.2 fL (78.0-98.0); Mean Platelet Volume 7.6 fL (7.4-10.4); Platelet Count 254 thou/uL (130-400); RBC Distribution Width 15.1 % (11.5-14.5); Red Blood Cell (RBC) Count 3.86 mill/uL (4.70-6.10)
[2020-11-25] MEDS: Levothyroxine Sodium 125 MCG TAB PO SCH (05:52)
[2020-11-25] MEDS: Furosemide 40 MG/4 ML VIAL SLOW IVP SCH ×2 (05:53→14:19)
[2020-11-25 07:42] LABS: Anion Gap 16 mmol/L (10-20); BUN (Urea Nitrogen) 32 mg/dL (8.4-25.7); Calc. Creatinine Clearance 58 mL/min (70-130); Calcium 9.7 mg/dL (7.8-10.44); Carbon Dioxide 26 mmol/L (23-31); Chloride 95 mmol/L (98-107); Glucose 105 mg/dL (83-110); Potassium 3.4 mmol/L (3.5-5.1); Sodium 134 mmol/L (136-145)
[2020-11-25] MEDS ORDERED: Potassium Chloride 20 MEQ TAB PO SCH (08:00)
[2020-11-25] MEDS: Terazosin HCl 5 MG CAP PO SCH (09:14)
[2020-11-25] MEDS: Bisoprolol Fumarate 5 MG TAB PO SCH (09:14)
[2020-11-25] MEDS: Amlodipine 10 MG TAB PO SCH (09:14)
[2020-11-25] MEDS: Apixaban 5 MG TAB PO SCH ×2 (09:14→21:03)
[2020-11-25] MEDS: Atorvastatin Calcium 20 MG TAB PO SCH (21:03)
[2020-11-26] MEDS: Furosemide 100 MG/10 ML VIAL SLOW IVP SCH ×2 (06:14→13:59)
[2020-11-26] MEDS: Levothyroxine Sodium 125 MCG TAB PO SCH (06:15)
[2020-11-26] MEDS: Apixaban 5 MG TAB PO SCH (08:43)
[2020-11-26] MEDS: Bisoprolol Fumarate 5 MG TAB PO SCH (08:43)
[2020-11-26] MEDS: Amlodipine 10 MG TAB PO SCH (08:43)
[2020-11-26] MEDS: Terazosin HCl 5 MG CAP PO SCH (08:43)
[2020-11-26 10:11] LABS: #Basophils 0.1 thou/uL (0.0-0.2); #Eosinphils 0.2 thou/uL (0.0-0.7); #Lymphocytes 2.1 thou/uL (1.20-3.40); #Monocytes 0.5 thou/uL (0.11-0.59); #Neutrophils 5.7 thou/uL (1.40-6.50); %Basophils 0.6 % (0.0-1.0); %Eosinophils 2.5 % (0.0-10.0); %Lymphocytes 24.4 % (21.0-51.0); %Monocytes 5.7 % (0.0-10.0); %Neutrophils 66.9 % (42.0-75.0); Hemoglobin 12.6 g/dL (14.0-18.0); Mean Corpuscular HGB CONC 31.5 g/dL (32.0-36.0); Mean Corpuscular Hemoglobin 29.7 pg (27.0-31.0); Mean Corpuscular Volume 94.2 fL (78.0-98.0); Mean Platelet Volume 7.4 fL (7.4-10.4); Platelet Count 273 thou/uL (130-400); RBC Distribution Width 15.2 % (11.5-14.5); Red Blood Cell (RBC) Count 4.24 mill/uL (4.70-6.10); White Blood Cell (WBC) Count 8.5 thou/uL (4.8-10.8)
[2020-11-26 10:43] LABS: Anion Gap 12 mmol/L (10-20); BUN (Urea Nitrogen) 32 mg/dL (8.4-25.7); Calc. Creatinine Clearance 57 mL/min (70-130); Calcium 9.7 mg/dL (7.8-10.44); Carbon Dioxide 30 mmol/L (23-31); Chloride 96 mmol/L (98-107); Glucose 124 mg/dL (83-110); Potassium 3.4 mmol/L (3.5-5.1); Sodium 135 mmol/L (136-145)
[2020-11-26 12:12] VITALS: BP 123/58; TEMP 97.7
== END 2020-11-26 15:45 | DRG 280 ==
LOC: ERS 13:40 → 2SW 16:10 → OBSVTOIN 11-25 10:13 → 2NO 11-25 17:40
PROVIDERS: ADMIT Internal Medicine; ATTEND Internal Medicine
DX: I13.0 Hypertensive heart and chronic kidney disease with heart failure and stage 1 through stage 4 chronic kidney disease, or unspecified chronic kidney disease (principal); I21.A1 Myocardial infarction type 2; I50.33 Acute on chronic diastolic (congestive) heart failure; N17.9 Acute kidney failure, unspecified; I48.20 Chronic atrial fibrillation, unspecified; E03.9 Hypothyroidism, unspecified; G47.30 Sleep apnea, unspecified; N40.0 Benign prostatic hyperplasia without lower urinary tract symptoms; E78.5 Hyperlipidemia, unspecified; E66.9 Obesity, unspecified; E11.22 Type 2 diabetes mellitus with diabetic chronic kidney disease; N18.9 Chronic kidney disease, unspecified; E11.69 Type 2 diabetes mellitus with other specified complication; E87.6 Hypokalemia; Z96.651 Presence of right artificial knee joint; Z98.890 Other specified postprocedural states; Z88.1 Allergy status to other antibiotic agents; Z88.2 Allergy status to sulfonamides; Z88.8 Allergy status to other drugs, medicaments and biological substances; Z79.01 Long term (current) use of anticoagulants; Z79.890 Hormone replacement therapy; Z79.899 Other long term (current) drug therapy; Z79.84 Long term (current) use of oral hypoglycemic drugs; Z68.31 Body mass index [BMI] 31.0-31.9, adult; Z20.822 Contact with and (suspected) exposure to COVID-19
CPT/HCPCS: 36415; 36416; 71046; 80048; 80053; 82550; 82553; 83735; 83880; 84300; 84443; 84484; 85025; 87635; 93005; 93010; 93798; 96374; 96376; 97139; G0378; J1940; U0003; U0005

== ENCOUNTER 2020-12-15 08:30 | Inpatient (IN) | payer MEDICARE ==
[2020-12-15] MEDS ORDERED: Furosemide 40 MG/4 ML VIAL ONE ×2 (09:00→13:07)
[2020-12-15 09:14] LABS: #Eosinphils 0.1 thou/uL (0.0-0.7); #Lymphocytes 1.4 thou/uL (1.20-3.40); #Monocytes 0.4 thou/uL (0.11-0.59); #Neutrophils 5.3 thou/uL (1.40-6.50); %Basophils 0.6 % (0.0-1.0); %Eosinophils 1.3 % (0.0-10.0); %Lymphocytes 19.9 % (21.0-51.0); %Monocytes 4.8 % (0.0-10.0); %Neutrophils 73.4 % (42.0-75.0); Hemoglobin 11.3 g/dL (14.0-18.0); Mean Corpuscular HGB CONC 32.1 g/dL (32.0-36.0); Mean Corpuscular Hemoglobin 30.4 pg (27.0-31.0); Mean Corpuscular Volume 94.8 fL (78.0-98.0); Mean Platelet Volume 7.2 fL (7.4-10.4); Platelet Count 222 thou/uL (130-400); RBC Distribution Width 14.9 % (11.5-14.5); Red Blood Cell (RBC) Count 3.72 mill/uL (4.70-6.10); White Blood Cell (WBC) Count 7.3 thou/uL (4.8-10.8)
[2020-12-15 10:18] LABS: Albumin 3.9 g/dL (3.4-4.8); Anion Gap 15 mmol/L (10-20); Bilirubin, Total 1.1 mg/dL (0.2-1.2); Calcium 9.4 mg/dL (7.8-10.44); Carbon Dioxide 23 mmol/L (23-31); Chloride 101 mmol/L (98-107); Glucose 136 mg/dL (83-110); Potassium 4.5 mmol/L (3.5-5.1); Protein, Total 6.9 g/dL (5.8-8.1); Sodium 134 mmol/L (136-145)
[2020-12-15 10:24] LABS: ALT (SGPT) 7 U/L (8-55); AST (SGOT) 14 U/L (5-34); Alkaline Phosphatase 27 U/L (40-110); BUN (Urea Nitrogen) 27 mg/dL (8.4-25.7); Calc. Creatinine Clearance 0 mL/min (70-130)
[2020-12-15] MEDS ORDERED: HYDROcodone/Acetaminophen 5/325 mg Tablet PO PRN (11:59)
[2020-12-15] MEDS ORDERED: Acetaminophen 325 MG TAB PO PRN (11:59)
[2020-12-15] MEDS ORDERED: Ondansetron ODT 4 MG TAB PO PRN (11:59)
[2020-12-15 12:54] LABS: Troponin I 0.019 ng/mL (< 0.028)
[2020-12-15 14:45] VITALS: BMI 35.2
[2020-12-15] MEDS: Furosemide 40 MG/4 ML VIAL SLOW IVP SCH (14:54)
[2020-12-15 15:41] LABS: Troponin I 0.029 ng/mL (< 0.028)
[2020-12-15] MEDS ORDERED: Dextrose 5% in Water 1,000 ML IV PRN (18:04)
[2020-12-15] MEDS ORDERED: HumaLOG 300 UNITS/3 ML VIAL SC PRN (18:04)
[2020-12-15] MEDS ORDERED: Dextrose 50% Abboject 50 ML SYRINGE SLOW IVP PRN (18:04)
[2020-12-15 18:53] LABS: Troponin I 0.033 ng/mL (< 0.028)
[2020-12-15] MEDS: Famotidine 20 MG TAB PO SCH (21:04)
[2020-12-15] MEDS: Apixaban 5 MG TAB PO SCH ×2 (21:04→22:26)
[2020-12-15] MEDS: Atorvastatin Calcium 20 MG TAB PO SCH (21:05)
[2020-12-16 04:45] LABS: #Basophils 0.1 thou/uL (0.0-0.2); #Eosinphils 0.1 thou/uL (0.0-0.7); #Lymphocytes 2.4 thou/uL (1.20-3.40); #Monocytes 0.5 thou/uL (0.11-0.59); #Neutrophils 5.5 thou/uL (1.40-6.50); %Basophils 0.8 % (0.0-1.0); %Eosinophils 1.4 % (0.0-10.0); %Lymphocytes 27.6 % (21.0-51.0); %Monocytes 5.6 % (0.0-10.0); %Neutrophils 64.6 % (42.0-75.0); Hemoglobin 11.3 g/dL (14.0-18.0); Mean Corpuscular HGB CONC 32.3 g/dL (32.0-36.0); Mean Corpuscular Hemoglobin 30.7 pg (27.0-31.0); Mean Corpuscular Volume 95.2 fL (78.0-98.0); Mean Platelet Volume 7.5 fL (7.4-10.4); Platelet Count 248 thou/uL (130-400); RBC Distribution Width 15.1 % (11.5-14.5); Red Blood Cell (RBC) Count 3.69 mill/uL (4.70-6.10); White Blood Cell (WBC) Count 8.5 thou/uL (4.8-10.8)
[2020-12-16 05:10] LABS: ALT (SGPT) Less than 7 U/L (8-55); AST (SGOT) 14 U/L (5-34); Albumin 3.7 g/dL (3.4-4.8); Alkaline Phosphatase 28 U/L (40-110); Anion Gap 11 mmol/L (10-20); BUN (Urea Nitrogen) 24 mg/dL (8.4-25.7); Bilirubin, Total 1.3 mg/dL (0.2-1.2); Calc. Creatinine Clearance 78 mL/min (70-130); Calcium 9.5 mg/dL (7.8-10.44); Carbon Dioxide 32 mmol/L (23-31); Chloride 96 mmol/L (98-107); Globulin 3.1 g/dL (2.4-3.5); Glucose 93 mg/dL (83-110); Potassium 3.2 mmol/L (3.5-5.1); Protein, Total 6.8 g/dL (5.8-8.1); Sodium 136 mmol/L (136-145)
[2020-12-16] MEDS: Furosemide 40 MG/4 ML VIAL SLOW IVP SCH ×2 (05:12→14:00)
[2020-12-16] MEDS: Levothyroxine Sodium 125 MCG TAB PO SCH (05:12)
[2020-12-16] MEDS: Famotidine 20 MG TAB PO SCH ×2 (08:52→20:20)
[2020-12-16] MEDS: Amlodipine 10 MG TAB PO SCH (08:52)
[2020-12-16] MEDS: Bisoprolol Fumarate 5 MG TAB PO SCH (08:53)
[2020-12-16] MEDS ORDERED: Lisinopril 20 MG TAB PO SCH ×2 (09:00→12:15)
[2020-12-16] MEDS: Apixaban 5 MG TAB PO SCH (09:26)
[2020-12-16] MEDS ORDERED: Potassium Chloride 10 MEQ TAB PO SCH (11:00)
[2020-12-16] MEDS ORDERED: Potassium Chloride 20 MEQ TAB PO SCH (13:00)
[2020-12-16] MEDS ORDERED: Cyclobenzaprine 10 MG TAB PO PRN (14:24)
[2020-12-16] MEDS: metFORMIN 500 MG TAB PO SCH (17:35)
[2020-12-16 18:18] LABS: Hemoglobin 11.9 g/dL (14.0-18.0); Platelet Count 274 thou/uL (130-400)
[2020-12-16] MEDS: Enoxaparin Sodium 120 MG/0.8 ML SYRINGE SC SCH (20:20)
[2020-12-16] MEDS: Atorvastatin Calcium 20 MG TAB PO SCH (20:20)
[2020-12-16] MEDS: Senokot S 8.6-50 MG TAB PO SCH (20:21)
[2020-12-16] MEDS ORDERED: Enoxaparin Sodium 100 MG/ML SYRINGE SC SCH (21:00)
[2020-12-17] MEDS: Furosemide 40 MG/4 ML VIAL SLOW IVP SCH ×2 (05:17→15:05)
[2020-12-17] MEDS: Levothyroxine Sodium 125 MCG TAB PO SCH (05:17)
[2020-12-17] MEDS: Ferrous Gluconate 324 MG TAB PO SCH (08:21)
[2020-12-17] MEDS: Senokot S 8.6-50 MG TAB PO SCH ×2 (08:21→21:17)
[2020-12-17] MEDS: Terazosin HCl 5 MG CAP PO SCH (08:21)
[2020-12-17] MEDS: metFORMIN 500 MG TAB PO SCH ×2 (08:21→16:14)
[2020-12-17] MEDS: Finasteride 5 MG TAB PO SCH (08:21)
[2020-12-17] MEDS: Famotidine 20 MG TAB PO SCH ×2 (08:22→21:09)
[2020-12-17] MEDS: Multivitamin W/ Minerals 1 TAB PO SCH (08:22)
[2020-12-17] MEDS: Oxybutynin ER 5 MG TAB PO SCH (08:22)
[2020-12-17] MEDS: Enoxaparin Sodium 120 MG/0.8 ML SYRINGE SC SCH ×2 (08:22→21:09)
[2020-12-17] MEDS: Lisinopril 20 MG TAB PO SCH (08:22)
[2020-12-17] MEDS: Fenofibrate Nanocrystallized 145 MG TAB PO SCH (08:22)
[2020-12-17] MEDS: Amlodipine 10 MG TAB PO SCH (08:22)
[2020-12-17] MEDS: Bisoprolol Fumarate 5 MG TAB PO SCH (08:31)
[2020-12-17] MEDS: Atorvastatin Calcium 20 MG TAB PO SCH (21:09)
[2020-12-18] MEDS: Levothyroxine Sodium 125 MCG TAB PO SCH (04:59)
[2020-12-18] MEDS: Furosemide 40 MG/4 ML VIAL SLOW IVP SCH ×2 (04:59→13:48)
[2020-12-18] MEDS: Terazosin HCl 5 MG CAP PO SCH (07:48)
[2020-12-18] MEDS: Enoxaparin Sodium 120 MG/0.8 ML SYRINGE SC SCH (07:48)
[2020-12-18] MEDS: Senokot S 8.6-50 MG TAB PO SCH ×2 (07:48→21:21)
[2020-12-18] MEDS: Finasteride 5 MG TAB PO SCH (07:49)
[2020-12-18] MEDS: Famotidine 20 MG TAB PO SCH ×2 (07:49→21:20)
[2020-12-18] MEDS: Lisinopril 20 MG TAB PO SCH (07:49)
[2020-12-18] MEDS: Amlodipine 10 MG TAB PO SCH (07:49)
[2020-12-18] MEDS: Ferrous Gluconate 324 MG TAB PO SCH (07:49)
[2020-12-18] MEDS: Fenofibrate Nanocrystallized 145 MG TAB PO SCH (07:49)
[2020-12-18] MEDS: metFORMIN 500 MG TAB PO SCH ×2 (07:49→16:41)
[2020-12-18] MEDS: Bisoprolol Fumarate 5 MG TAB PO SCH (07:50)
[2020-12-18] MEDS: Oxybutynin ER 5 MG TAB PO SCH (07:50)
[2020-12-18] MEDS: Multivitamin W/ Minerals 1 TAB PO SCH (07:50)
[2020-12-18 14:44] LABS: Anion Gap 17 mmol/L (10-20); BUN (Urea Nitrogen) 30 mg/dL (8.4-25.7); Calc. Creatinine Clearance 63 mL/min (70-130); Calcium 9.3 mg/dL (7.8-10.44); Carbon Dioxide 25 mmol/L (23-31); Chloride 95 mmol/L (98-107); Glucose 125 mg/dL (83-110); Potassium 3.7 mmol/L (3.5-5.1); Sodium 133 mmol/L (136-145)
[2020-12-18] MEDS: Apixaban 5 MG TAB PO SCH (21:20)
[2020-12-18] MEDS: Atorvastatin Calcium 20 MG TAB PO SCH (21:20)
[2020-12-19 04:33] LABS: Anion Gap 13 mmol/L (10-20); BUN (Urea Nitrogen) 33 mg/dL (8.4-25.7); Calc. Creatinine Clearance 58 mL/min (70-130); Calcium 9.1 mg/dL (7.8-10.44); Carbon Dioxide 29 mmol/L (23-31); Chloride 94 mmol/L (98-107); Glucose 123 mg/dL (83-110); Potassium 3.4 mmol/L (3.5-5.1); Sodium 133 mmol/L (136-145)
[2020-12-19] MEDS: Levothyroxine Sodium 125 MCG TAB PO SCH (06:37)
[2020-12-19] MEDS: Furosemide 40 MG/4 ML VIAL SLOW IVP SCH ×2 (06:37→15:01)
[2020-12-19] MEDS: Multivitamin W/ Minerals 1 TAB PO SCH (08:51)
[2020-12-19] MEDS: Oxybutynin ER 5 MG TAB PO SCH (08:51)
[2020-12-19] MEDS: metFORMIN 500 MG TAB PO SCH ×2 (08:51→17:53)
[2020-12-19] MEDS: Apixaban 5 MG TAB PO SCH ×2 (08:51→20:24)
[2020-12-19] MEDS: Fenofibrate Nanocrystallized 145 MG TAB PO SCH (08:52)
[2020-12-19] MEDS: Lisinopril 20 MG TAB PO SCH (08:52)
[2020-12-19] MEDS: Terazosin HCl 5 MG CAP PO SCH (08:52)
[2020-12-19] MEDS: Amlodipine 10 MG TAB PO SCH (08:52)
[2020-12-19] MEDS: Finasteride 5 MG TAB PO SCH (08:52)
[2020-12-19] MEDS: Ferrous Gluconate 324 MG TAB PO SCH (08:52)
[2020-12-19] MEDS: Bisoprolol Fumarate 5 MG TAB PO SCH (08:59)
[2020-12-19] MEDS: Famotidine 20 MG TAB PO SCH ×2 (08:59→20:23)
[2020-12-19] MEDS: Senokot S 8.6-50 MG TAB PO SCH ×2 (09:00→20:24)
[2020-12-19 17:15] LABS: Hemoglobin 11.9 g/dL (14.0-18.0); Platelet Count 248 thou/uL (130-400)
[2020-12-19] MEDS ORDERED: Potassium Chloride 20 MEQ TAB PO SCH (18:45)
[2020-12-19] MEDS: Atorvastatin Calcium 20 MG TAB PO SCH (20:24)
[2020-12-20] MEDS: Levothyroxine Sodium 125 MCG TAB PO SCH (05:27)
[2020-12-20] MEDS: Furosemide 40 MG/4 ML VIAL SLOW IVP SCH (05:27)
[2020-12-20 07:24] LABS: Calcium 9.7 mg/dL (7.8-10.44); Chloride 94 mmol/L (98-107); Glucose 104 mg/dL (83-110); Potassium 3.5 mmol/L (3.5-5.1); Sodium 134 mmol/L (136-145)
[2020-12-20 07:26] LABS: Anion Gap 15 mmol/L (10-20); Carbon Dioxide 29 mmol/L (23-31)
[2020-12-20 07:28] LABS: Calc. Creatinine Clearance 56 mL/min (70-130)
[2020-12-20 07:29] LABS: BUN (Urea Nitrogen) 35 mg/dL (8.4-25.7)
[2020-12-20] MEDS: metFORMIN 500 MG TAB PO SCH (08:57)
[2020-12-20] MEDS: Senokot S 8.6-50 MG TAB PO SCH (08:58)
[2020-12-20] MEDS: Terazosin HCl 5 MG CAP PO SCH (08:58)
[2020-12-20] MEDS: Amlodipine 10 MG TAB PO SCH (08:58)
[2020-12-20] MEDS: Multivitamin W/ Minerals 1 TAB PO SCH (08:58)
[2020-12-20] MEDS: Oxybutynin ER 5 MG TAB PO SCH (08:58)
[2020-12-20] MEDS: Famotidine 20 MG TAB PO SCH (08:59)
[2020-12-20] MEDS: Ferrous Gluconate 324 MG TAB PO SCH (08:59)
[2020-12-20] MEDS: Lisinopril 20 MG TAB PO SCH (08:59)
[2020-12-20] MEDS ORDERED: Furosemide 40 MG TAB PO SCH (09:00)
[2020-12-20] MEDS: Fenofibrate Nanocrystallized 145 MG TAB PO SCH (09:00)
[2020-12-20] MEDS ORDERED: Bisoprolol Fumarate 5 MG TAB PO SCH (09:00)
[2020-12-20] MEDS: Finasteride 5 MG TAB PO SCH (09:00)
[2020-12-20] MEDS: Apixaban 5 MG TAB PO SCH (09:00)
[2020-12-20] MEDS: Bisoprolol Fumarate 5 MG TAB PO SCH (09:23)
[2020-12-20 11:53] VITALS: BP 137/58; TEMP 97.8
== END 2020-12-20 15:25 | disposition home or self-care (01) | DRG 291 ==
LOC: ERS 08:30 → 2NO 12:01
PROVIDERS: ADMIT Emergency Medicine; ATTEND Internal Medicine
DX: I13.0 Hypertensive heart and chronic kidney disease with heart failure and stage 1 through stage 4 chronic kidney disease, or unspecified chronic kidney disease (principal); I50.33 Acute on chronic diastolic (congestive) heart failure; J96.01 Acute respiratory failure with hypoxia; I48.20 Chronic atrial fibrillation, unspecified; N17.9 Acute kidney failure, unspecified; E11.22 Type 2 diabetes mellitus with diabetic chronic kidney disease; E03.9 Hypothyroidism, unspecified; E78.5 Hyperlipidemia, unspecified; N40.0 Benign prostatic hyperplasia without lower urinary tract symptoms; G47.33 Obstructive sleep apnea (adult) (pediatric); I35.0 Nonrheumatic aortic (valve) stenosis; E11.69 Type 2 diabetes mellitus with other specified complication; I49.5 Sick sinus syndrome; N18.30 Chronic kidney disease, stage 3 unspecified; M19.90 Unspecified osteoarthritis, unspecified site; Z96.651 Presence of right artificial knee joint; E66.9 Obesity, unspecified; Z88.1 Allergy status to other antibiotic agents; Z88.2 Allergy status to sulfonamides; Z88.8 Allergy status to other drugs, medicaments and biological substances; Z79.899 Other long term (current) drug therapy; Z86.73 Personal history of transient ischemic attack (TIA), and cerebral infarction without residual deficits; Z98.890 Other specified postprocedural states; Z68.34 Body mass index [BMI] 34.0-34.9, adult
CPT/HCPCS: 36415; 36416; 71045; 80048; 80053; 83880; 84484; 85014; 85018; 85025; 85049; 93005; 93306; 94760; 96374; 96376; J1650; J1940

== ENCOUNTER 2021-01-17 07:07 | Inpatient (IN) | payer MEDICARE ==
[2021-01-17] MEDS ORDERED: Nitroglycerin 0.4 MG TAB 1 EACH ONE (07:34)
[2021-01-17] MEDS ORDERED: Aspirin Chewable 81 MG TAB ONE (07:34)
[2021-01-17] MEDS ORDERED: Nitroglycerin 2% Ointment 1 INCH/1 GM Packet ONE (07:34)
[2021-01-17] MEDS ORDERED: Furosemide 40 MG/4 ML VIAL ONE (07:34)
[2021-01-17 07:41] LABS: #Basophils 0.1 thou/uL (0.0-0.2); #Eosinphils 0.3 thou/uL (0.0-0.7); #Lymphocytes 2.2 thou/uL (1.20-3.40); #Monocytes 0.4 thou/uL (0.11-0.59); #Neutrophils 5.5 thou/uL (1.40-6.50); %Basophils 0.7 % (0.0-1.0); %Eosinophils 3.6 % (0.0-10.0); %Lymphocytes 26.2 % (21.0-51.0); %Monocytes 4.4 % (0.0-10.0); Hemoglobin 11.2 g/dL (14.0-18.0); Mean Corpuscular HGB CONC 32.8 g/dL (32.0-36.0); Mean Corpuscular Hemoglobin 31.7 pg (27.0-31.0); Mean Corpuscular Volume 96.8 fL (78.0-98.0); Mean Platelet Volume 7.8 fL (7.4-10.4); Platelet Count 237 thou/uL (130-400); RBC Distribution Width 14.9 % (11.5-14.5); Red Blood Cell (RBC) Count 3.54 mill/uL (4.70-6.10); White Blood Cell (WBC) Count 8.5 thou/uL (4.8-10.8)
[2021-01-17 08:05] LABS: ALT (SGPT) 10 U/L (8-55); AST (SGOT) 14 U/L (5-34); Albumin 3.8 g/dL (3.4-4.8); Alkaline Phosphatase 26 U/L (40-110); Anion Gap 14 mmol/L (10-20); BUN (Urea Nitrogen) 23 mg/dL (8.4-25.7); CK (CPK) 70 U/L (30-200); Calc. Creatinine Clearance 0 mL/min (70-130); Calcium 9.3 mg/dL (7.8-10.44); Carbon Dioxide 27 mmol/L (23-31); Chloride 104 mmol/L (98-107); Globulin 2.7 g/dL (2.4-3.5); Glucose 105 mg/dL (83-110); Lipase 24 U/L (8-78); Potassium 3.9 mmol/L (3.5-5.1); Protein, Total 6.5 g/dL (5.8-8.1); Sodium 141 mmol/L (136-145)
[2021-01-17 08:54] LABS: Bilirubin Negative (Negative); Blood, Urine Negative (Negative); Glucose, Urine (Dipstick) Negative (Negative); Ketone, Urine Negative (Negative); Leukocyte Negative (Negative); Nitrite Negative (Negative); Protein, Urine (Dipstick) Negative (Neg-Trace); Urobilinogen 0.2 mg/dL (Less than 2)
[2021-01-17] MEDS ORDERED: Senokot S 8.6-50 MG TAB PO PRN (09:00)
[2021-01-17 09:03] LABS: Clarity Clear (Clear)
[2021-01-17] MEDS ORDERED: Nebivolol HCl 5 MG TAB PO SCH (09:15)
[2021-01-17] MEDS ORDERED: Apixaban 5 MG TAB PO SCH (09:15)
[2021-01-17] MEDS ORDERED: Finasteride 5 MG TAB PO SCH (09:15)
[2021-01-17] MEDS ORDERED: Levothyroxine Sodium 125 MCG TAB PO SCH (09:15)
[2021-01-17] MEDS ORDERED: Lisinopril 20 MG TAB PO SCH (09:15)
[2021-01-17] MEDS ORDERED: Calcium Carbonate 500 MG ChewTAB PO PRN (10:05)
[2021-01-17] MEDS ORDERED: Ondansetron PF 4 MG/2 ML Vial IVP PRN (10:05)
[2021-01-17] MEDS ORDERED: Bisacodyl 10 MG SUPP PR PRN (10:05)
[2021-01-17] MEDS ORDERED: Acetaminophen 325 MG TAB PO PRN (10:05)
[2021-01-17] MEDS ORDERED: Ondansetron ODT 4 MG TAB PO PRN (10:05)
[2021-01-17] MEDS ORDERED: Magnesium 2 GM/50 ML 2 GM in Premix Bag 1 BAG IVPB SCH (10:15)
[2021-01-17 11:21] LABS: Troponin I 0.019 ng/mL (< 0.028)
[2021-01-17 14:16] LABS: Troponin I 0.014 ng/mL (< 0.028)
[2021-01-17] MEDS: Furosemide 40 MG/4 ML VIAL SLOW IVP SCH (16:32)
[2021-01-17 16:45] VITALS: BMI 33.5
[2021-01-17] MEDS ORDERED: Potassium Chloride 20 MEQ TAB PO SCH (17:00)
[2021-01-17] MEDS ORDERED: Dextrose 50% Abboject 50 ML SYRINGE SLOW IVP PRN (17:22)
[2021-01-17] MEDS ORDERED: Insulin Regular 300 UNITS/3 ML VIAL SC PRN ×2 (17:22)
[2021-01-17] MEDS ORDERED: Dextrose 5% in Water 1,000 ML IV PRN (17:22)
[2021-01-17] MEDS: hydrALAZINE 25 MG TAB PO PRN (20:45)
[2021-01-17] MEDS: Famotidine 20 MG TAB PO SCH (20:45)
[2021-01-17] MEDS: Apixaban 5 MG TAB PO SCH (20:45)
[2021-01-18] MEDS: hydrALAZINE 20 MG/ML VIAL SLOW IVP PRN (00:33)
[2021-01-18] MEDS: Furosemide 40 MG/4 ML VIAL SLOW IVP SCH ×2 (05:55→14:08)
[2021-01-18] MEDS: Levothyroxine Sodium 125 MCG TAB PO SCH (05:55)
[2021-01-18 07:24] LABS: #Eosinphils 0.1 thou/uL (0.0-0.7); #Lymphocytes 1.8 thou/uL (1.20-3.40); #Monocytes 0.3 thou/uL (0.11-0.59); #Neutrophils 5.3 thou/uL (1.40-6.50); %Basophils 0.5 % (0.0-1.0); %Eosinophils 1.5 % (0.0-10.0); %Lymphocytes 23.8 % (21.0-51.0); %Monocytes 3.8 % (0.0-10.0); %Neutrophils 70.3 % (42.0-75.0); Hemoglobin 10.9 g/dL (14.0-18.0); Mean Corpuscular HGB CONC 32.4 g/dL (32.0-36.0); Mean Corpuscular Volume 95.8 fL (78.0-98.0); Mean Platelet Volume 7.6 fL (7.4-10.4); Platelet Count 222 thou/uL (130-400); RBC Distribution Width 14.8 % (11.5-14.5); Red Blood Cell (RBC) Count 3.51 mill/uL (4.70-6.10); White Blood Cell (WBC) Count 7.5 thou/uL (4.8-10.8)
[2021-01-18 07:42] LABS: ALT (SGPT) 7 U/L (8-55); AST (SGOT) 11 U/L (5-34); Albumin 3.5 g/dL (3.4-4.8); Alkaline Phosphatase 23 U/L (40-110); Anion Gap 10 mmol/L (10-20); BUN (Urea Nitrogen) 23 mg/dL (8.4-25.7); Bilirubin, Total 1.2 mg/dL (0.2-1.2); Calc. Creatinine Clearance 79 mL/min (70-130); Carbon Dioxide 28 mmol/L (23-31); Chloride 106 mmol/L (98-107); Globulin 2.9 g/dL (2.4-3.5); Glucose 102 mg/dL (83-110); Magnesium 1.8 mg/dL (1.6-2.6); Potassium 3.6 mmol/L (3.5-5.1); Protein, Total 6.4 g/dL (5.8-8.1); Sodium 140 mmol/L (136-145)
[2021-01-18] MEDS ORDERED: Magnesium Sulfate 2 GM in Sodium Chloride 0.9% 100 ML IVPB SCH (08:00)
[2021-01-18] MEDS ORDERED: Magnesium 2 GM/50 ML 2 GM in Premix Bag 1 BAG IVPB SCH (08:00)
[2021-01-18] MEDS: Famotidine 20 MG TAB PO SCH ×2 (09:29→21:25)
[2021-01-18] MEDS: Finasteride 5 MG TAB PO SCH (09:29)
[2021-01-18] MEDS: Nebivolol HCl 5 MG TAB PO SCH (09:29)
[2021-01-18] MEDS: Apixaban 5 MG TAB PO SCH ×2 (09:30→21:25)
[2021-01-18] MEDS: Lisinopril 20 MG TAB PO SCH (09:30)
[2021-01-18] MEDS: Potassium Chloride 20 MEQ TAB PO SCH ×2 (09:30→16:37)
[2021-01-18] MEDS: Senokot S 8.6-50 MG TAB PO SCH (21:24)
[2021-01-18] MEDS: Atorvastatin Calcium 20 MG TAB PO SCH (21:25)
[2021-01-19 04:51] LABS: ALT (SGPT) Less than 7 U/L (8-55); AST (SGOT) 11 U/L (5-34); Albumin 3.6 g/dL (3.4-4.8); Alkaline Phosphatase 24 U/L (40-110); Anion Gap 11 mmol/L (10-20); BUN (Urea Nitrogen) 25 mg/dL (8.4-25.7); Bilirubin, Total 1.1 mg/dL (0.2-1.2); Calc. Creatinine Clearance 73 mL/min (70-130); Calcium 8.8 mg/dL (7.8-10.44); Carbon Dioxide 31 mmol/L (23-31); Chloride 103 mmol/L (98-107); Globulin 2.7 g/dL (2.4-3.5); Glucose 99 mg/dL (83-110); Magnesium 2.3 mg/dL (1.6-2.6); Potassium 3.9 mmol/L (3.5-5.1); Protein, Total 6.3 g/dL (5.8-8.1); Sodium 141 mmol/L (136-145)
[2021-01-19] MEDS: hydrALAZINE 20 MG/ML VIAL SLOW IVP PRN (05:08)
[2021-01-19] MEDS: Levothyroxine Sodium 125 MCG TAB PO SCH (06:07)
[2021-01-19] MEDS: Furosemide 40 MG/4 ML VIAL SLOW IVP SCH (06:07)
[2021-01-19] MEDS: Senokot S 8.6-50 MG TAB PO SCH ×2 (08:10→20:50)
[2021-01-19] MEDS: Nebivolol HCl 5 MG TAB PO SCH (08:10)
[2021-01-19] MEDS: Potassium Chloride 20 MEQ TAB PO SCH (08:10)
[2021-01-19] MEDS: Terazosin HCl 5 MG CAP PO SCH (08:10)
[2021-01-19] MEDS: Lisinopril 20 MG TAB PO SCH (08:11)
[2021-01-19] MEDS: Famotidine 20 MG TAB PO SCH (08:11)
[2021-01-19] MEDS: Finasteride 5 MG TAB PO SCH (08:11)
[2021-01-19] MEDS: Apixaban 5 MG TAB PO SCH ×2 (08:11→20:50)
[2021-01-19] MEDS ORDERED: Furosemide 40 MG TAB PO SCH (14:00)
[2021-01-19] MEDS: Atorvastatin Calcium 20 MG TAB PO SCH (20:50)
[2021-01-20 04:51] LABS: Anion Gap 11 mmol/L (10-20); BUN (Urea Nitrogen) 25 mg/dL (8.4-25.7); Calc. Creatinine Clearance 75 mL/min (70-130); Calcium 8.9 mg/dL (7.8-10.44); Carbon Dioxide 28 mmol/L (23-31); Chloride 105 mmol/L (98-107); Glucose 106 mg/dL (83-110); Potassium 3.9 mmol/L (3.5-5.1); Sodium 140 mmol/L (136-145)
[2021-01-20] MEDS: Levothyroxine Sodium 125 MCG TAB PO SCH (05:28)
[2021-01-20] MEDS: hydrALAZINE 20 MG/ML VIAL SLOW IVP PRN (05:28)
[2021-01-20] MEDS ORDERED: Furosemide 40 MG/4 ML VIAL SLOW IVP SCH (09:00)
[2021-01-20] MEDS: Terazosin HCl 5 MG CAP PO SCH (09:19)
[2021-01-20] MEDS: Lisinopril 20 MG TAB PO SCH (09:19)
[2021-01-20] MEDS: Apixaban 5 MG TAB PO SCH ×2 (09:20→20:10)
[2021-01-20] MEDS: Finasteride 5 MG TAB PO SCH (09:20)
[2021-01-20] MEDS: Senokot S 8.6-50 MG TAB PO SCH ×2 (09:22→20:10)
[2021-01-20] MEDS: Nebivolol HCl 5 MG TAB PO SCH (09:30)
[2021-01-20] MEDS: Atorvastatin Calcium 20 MG TAB PO SCH (20:10)
[2021-01-21] MEDS: hydrALAZINE 25 MG TAB PO PRN (03:19)
[2021-01-21 05:15] LABS: #Basophils 0.1 thou/uL (0.0-0.2); #Eosinphils 0.3 thou/uL (0.0-0.7); #Lymphocytes 1.8 thou/uL (1.20-3.40); #Monocytes 0.5 thou/uL (0.11-0.59); #Neutrophils 5.4 thou/uL (1.40-6.50); %Basophils 0.6 % (0.0-1.0); %Eosinophils 3.9 % (0.0-10.0); %Lymphocytes 22.4 % (21.0-51.0); %Monocytes 6.1 % (0.0-10.0); Hemoglobin 11.3 g/dL (14.0-18.0); Mean Corpuscular HGB CONC 33.1 g/dL (32.0-36.0); Mean Corpuscular Hemoglobin 31.8 pg (27.0-31.0); Mean Platelet Volume 7.7 fL (7.4-10.4); Platelet Count 217 thou/uL (130-400); RBC Distribution Width 14.7 % (11.5-14.5); Red Blood Cell (RBC) Count 3.55 mill/uL (4.70-6.10); White Blood Cell (WBC) Count 8.1 thou/uL (4.8-10.8)
[2021-01-21] MEDS: Levothyroxine Sodium 125 MCG TAB PO SCH (05:26)
[2021-01-21 05:30] LABS: Anion Gap 10 mmol/L (10-20); BUN (Urea Nitrogen) 25 mg/dL (8.4-25.7); Calc. Creatinine Clearance 88 mL/min (70-130); Carbon Dioxide 29 mmol/L (23-31); Chloride 105 mmol/L (98-107); Glucose 106 mg/dL (83-110); Potassium 3.7 mmol/L (3.5-5.1); Sodium 140 mmol/L (136-145)
[2021-01-21] MEDS: Finasteride 5 MG TAB PO SCH (09:31)
[2021-01-21] MEDS: Lisinopril 20 MG TAB PO SCH (09:31)
[2021-01-21] MEDS: Apixaban 5 MG TAB PO SCH (09:31)
[2021-01-21] MEDS: Furosemide 40 MG TAB PO SCH ×2 (09:31→14:53)
[2021-01-21] MEDS: Nebivolol HCl 5 MG TAB PO SCH (09:32)
[2021-01-21] MEDS: Senokot S 8.6-50 MG TAB PO SCH (09:32)
[2021-01-21] MEDS: Terazosin HCl 5 MG CAP PO SCH (09:33)
[2021-01-21 16:35] VITALS: BP 144/70; TEMP 97.9
== END 2021-01-21 17:15 | disposition home or self-care (01) | DRG 291 ==
LOC: ERS 07:07 → ERHOLD 08:46 → 2NO 16:04
PROVIDERS: ADMIT Internal Medicine; ATTEND Family Medicine
DX: I13.0 Hypertensive heart and chronic kidney disease with heart failure and stage 1 through stage 4 chronic kidney disease, or unspecified chronic kidney disease (principal); I50.33 Acute on chronic diastolic (congestive) heart failure; J96.01 Acute respiratory failure with hypoxia; I48.20 Chronic atrial fibrillation, unspecified; Z20.822 Contact with and (suspected) exposure to COVID-19; E03.9 Hypothyroidism, unspecified; G47.33 Obstructive sleep apnea (adult) (pediatric); Z96.651 Presence of right artificial knee joint; N40.0 Benign prostatic hyperplasia without lower urinary tract symptoms; E66.9 Obesity, unspecified; N18.30 Chronic kidney disease, stage 3 unspecified; E11.22 Type 2 diabetes mellitus with diabetic chronic kidney disease; I35.0 Nonrheumatic aortic (valve) stenosis; E11.69 Type 2 diabetes mellitus with other specified complication; E78.2 Mixed hyperlipidemia; E83.42 Hypomagnesemia; E87.6 Hypokalemia; M19.90 Unspecified osteoarthritis, unspecified site; Z88.2 Allergy status to sulfonamides; Z88.1 Allergy status to other antibiotic agents; Z88.5 Allergy status to narcotic agent; Z79.01 Long term (current) use of anticoagulants; Z79.890 Hormone replacement therapy; Z79.899 Other long term (current) drug therapy; Z99.89 Dependence on other enabling machines and devices; Z68.32 Body mass index [BMI] 32.0-32.9, adult
CPT/HCPCS: 36415; 36416; 71045; 80048; 80053; 80061; 81001; 81003; 82043; 82550; 83036; 83690; 83735; 83880; 84484; 85025; 93005; 93306; 93798; 96374; J0360; J1940; J3475

== ENCOUNTER 2021-02-08 00:24 | Inpatient (IN) | payer MEDICARE ==
[2021-02-08 01:08] LABS: #Basophils 0.1 thou/uL (0.0-0.2); #Eosinphils 0.2 thou/uL (0.0-0.7); #Monocytes 0.4 thou/uL (0.11-0.59); #Neutrophils 6.4 thou/uL (1.40-6.50); %Basophils 0.6 % (0.0-1.0); %Lymphocytes 21.9 % (21.0-51.0); %Monocytes 4.4 % (0.0-10.0); %Neutrophils 71.2 % (42.0-75.0); Hemoglobin 11.2 g/dL (14.0-18.0); Mean Corpuscular HGB CONC 32.9 g/dL (32.0-36.0); Mean Corpuscular Hemoglobin 32.1 pg (27.0-31.0); Mean Corpuscular Volume 97.5 fL (78.0-98.0); Mean Platelet Volume 7.7 fL (7.4-10.4); Platelet Count 236 thou/uL (130-400); RBC Distribution Width 14.3 % (11.5-14.5); Red Blood Cell (RBC) Count 3.49 mill/uL (4.70-6.10); White Blood Cell (WBC) Count 9.1 thou/uL (4.8-10.8)
[2021-02-08 01:33] LABS: ALT (SGPT) 9 U/L (8-55); AST (SGOT) 15 U/L (5-34); Albumin 3.9 g/dL (3.4-4.8); Alkaline Phosphatase 30 U/L (40-110); Anion Gap 13 mmol/L (10-20); BUN (Urea Nitrogen) 31 mg/dL (8.4-25.7); Bilirubin, Total 1.2 mg/dL (0.2-1.2); Calc. Creatinine Clearance 0 mL/min (70-130); Calcium 9.5 mg/dL (7.8-10.44); Carbon Dioxide 26 mmol/L (23-31); Chloride 101 mmol/L (98-107); Globulin 3.2 g/dL (2.4-3.5); Glucose 122 mg/dL (83-110); Potassium 3.8 mmol/L (3.5-5.1); Protein, Total 7.1 g/dL (5.8-8.1); Sodium 136 mmol/L (136-145)
[2021-02-08] MEDS ORDERED: Furosemide 40 MG/4 ML VIAL ONE (02:25)
[2021-02-08 05:52] LABS: SARS-CoV-2 NAA Rapid Test Not Detected (NotDetected)
[2021-02-08 06:07] VITALS: BMI 33.7
[2021-02-08] MEDS ORDERED: Dextrose 5% in Water 1,000 ML IV PRN (07:29)
[2021-02-08] MEDS ORDERED: Dextrose 50% Abboject 50 ML SYRINGE SLOW IVP PRN (07:29)
[2021-02-08] MEDS ORDERED: HumaLOG 300 UNITS/3 ML VIAL SC PRN ×2 (07:29)
[2021-02-08] MEDS ORDERED: Nitroglycerin 2% Ointment 1 INCH/1 GM Packet TOP SCH (07:30)
[2021-02-08] MEDS: Lisinopril 20 MG TAB PO SCH (07:58)
[2021-02-08] MEDS: Potassium Chloride 20 MEQ TAB PO SCH (07:59)
[2021-02-08] MEDS: Levothyroxine Sodium 125 MCG TAB PO SCH (07:59)
[2021-02-08] MEDS: Fenofibrate Nanocrystallized 145 MG TAB PO SCH (07:59)
[2021-02-08] MEDS: Finasteride 5 MG TAB PO SCH (07:59)
[2021-02-08] MEDS: Oxybutynin ER 5 MG TAB PO SCH (07:59)
[2021-02-08] MEDS: Bisoprolol Fumarate 5 MG TAB PO SCH (08:00)
[2021-02-08] MEDS: Apixaban 5 MG TAB PO SCH ×2 (08:00→20:18)
[2021-02-08] MEDS ORDERED: Non-Formulary Item 1 EACH (Oxybutynin Chloride [Oxybutynin Chloride Er] 10 MG Tab.Er.24) PO SCH (09:00)
[2021-02-08 10:59] LABS: Troponin I 0.026 ng/mL (< 0.028)
[2021-02-08] MEDS ORDERED: Magnesium 2 GM/50 ML 2 GM in Premix Bag 1 BAG IVPB SCH (11:00)
[2021-02-08 13:55] LABS: Troponin I 0.032 ng/mL (< 0.028)
[2021-02-08] MEDS ORDERED: Furosemide 40 MG/4 ML VIAL SLOW IVP SCH (14:00)
[2021-02-08] MEDS: Furosemide 100 MG/10 ML VIAL SLOW IVP SCH (14:16)
[2021-02-08] MEDS: Nitroglycerin 2% Ointment 1 INCH/1 GM Packet TOP SCH ×2 (14:17→22:02)
[2021-02-08] MEDS: Atorvastatin Calcium 20 MG TAB PO SCH (20:18)
[2021-02-08] MEDS: Nystatin Powder 15 GM BOT TOP SCH (20:19)
[2021-02-08] MEDS ORDERED: Simvastatin 40 MG TAB PO SCH (21:00)
[2021-02-09 05:13] LABS: #Eosinphils 0.3 thou/uL (0.0-0.7); #Lymphocytes 2.3 thou/uL (1.20-3.40); #Monocytes 0.4 thou/uL (0.11-0.59); #Neutrophils 4.8 thou/uL (1.40-6.50); %Basophils 0.3 % (0.0-1.0); %Eosinophils 3.7 % (0.0-10.0); %Lymphocytes 29.6 % (21.0-51.0); %Monocytes 5.1 % (0.0-10.0); %Neutrophils 61.3 % (42.0-75.0); Hemoglobin 10.2 g/dL (14.0-18.0); Mean Corpuscular HGB CONC 32.5 g/dL (32.0-36.0); Mean Corpuscular Hemoglobin 31.2 pg (27.0-31.0); Mean Platelet Volume 7.5 fL (7.4-10.4); Platelet Count 223 thou/uL (130-400); RBC Distribution Width 14.4 % (11.5-14.5); Red Blood Cell (RBC) Count 3.28 mill/uL (4.70-6.10); White Blood Cell (WBC) Count 7.9 thou/uL (4.8-10.8)
[2021-02-09 05:39] LABS: Anion Gap 13 mmol/L (10-20); BUN (Urea Nitrogen) 29 mg/dL (8.4-25.7); Calc. Creatinine Clearance 65 mL/min (70-130); Carbon Dioxide 28 mmol/L (23-31); Chloride 101 mmol/L (98-107); Glucose 93 mg/dL (83-110); Potassium 3.7 mmol/L (3.5-5.1); Sodium 138 mmol/L (136-145)
[2021-02-09] MEDS: Furosemide 100 MG/10 ML VIAL SLOW IVP SCH ×2 (06:21→13:55)
[2021-02-09] MEDS: Nitroglycerin 2% Ointment 1 INCH/1 GM Packet TOP SCH ×3 (06:21→20:54)
[2021-02-09] MEDS: Terazosin HCl 5 MG CAP PO SCH (09:39)
[2021-02-09] MEDS: Finasteride 5 MG TAB PO SCH (09:39)
[2021-02-09] MEDS: Bisoprolol Fumarate 5 MG TAB PO SCH (09:39)
[2021-02-09] MEDS: Apixaban 5 MG TAB PO SCH ×2 (09:39→20:53)
[2021-02-09] MEDS: Oxybutynin ER 5 MG TAB PO SCH (09:40)
[2021-02-09] MEDS: Ferrous Gluconate 324 MG TAB PO SCH (09:40)
[2021-02-09] MEDS: Amlodipine 10 MG TAB PO SCH (09:40)
[2021-02-09] MEDS: Potassium Chloride 20 MEQ TAB PO SCH (09:40)
[2021-02-09] MEDS: Levothyroxine Sodium 125 MCG TAB PO SCH (09:41)
[2021-02-09] MEDS: Fenofibrate Nanocrystallized 145 MG TAB PO SCH (09:41)
[2021-02-09] MEDS: Lisinopril 20 MG TAB PO SCH (09:41)
[2021-02-09] MEDS: Nystatin Powder 15 GM BOT TOP SCH ×2 (09:42→20:54)
[2021-02-09] MEDS: Atorvastatin Calcium 20 MG TAB PO SCH (20:53)
[2021-02-10 05:18] LABS: #Eosinphils 0.3 thou/uL (0.0-0.7); #Monocytes 0.6 thou/uL (0.11-0.59); #Neutrophils 5.2 thou/uL (1.40-6.50); %Basophils 0.3 % (0.0-1.0); %Lymphocytes 24.2 % (21.0-51.0); %Monocytes 6.9 % (0.0-10.0); %Neutrophils 64.6 % (42.0-75.0); Hemoglobin 10.3 g/dL (14.0-18.0); Mean Corpuscular Hemoglobin 32.9 pg (27.0-31.0); Mean Corpuscular Volume 96.7 fL (78.0-98.0); Mean Platelet Volume 7.7 fL (7.4-10.4); Platelet Count 203 thou/uL (130-400); RBC Distribution Width 14.2 % (11.5-14.5); Red Blood Cell (RBC) Count 3.13 mill/uL (4.70-6.10)
[2021-02-10 05:36] LABS: Anion Gap 13 mmol/L (10-20); BUN (Urea Nitrogen) 26 mg/dL (8.4-25.7); Calc. Creatinine Clearance 76 mL/min (70-130); Calcium 8.8 mg/dL (7.8-10.44); Carbon Dioxide 27 mmol/L (23-31); Chloride 102 mmol/L (98-107); Glucose 101 mg/dL (83-110); Potassium 3.5 mmol/L (3.5-5.1); Sodium 138 mmol/L (136-145)
[2021-02-10] MEDS: Nitroglycerin 2% Ointment 1 INCH/1 GM Packet TOP SCH (06:01)
[2021-02-10] MEDS: Furosemide 100 MG/10 ML VIAL SLOW IVP SCH ×2 (06:03→15:05)
[2021-02-10] MEDS: Bisoprolol Fumarate 5 MG TAB PO SCH (08:47)
[2021-02-10] MEDS: Lisinopril 20 MG TAB PO SCH (08:48)
[2021-02-10] MEDS: Levothyroxine Sodium 125 MCG TAB PO SCH (08:48)
[2021-02-10] MEDS: Terazosin HCl 5 MG CAP PO SCH (08:48)
[2021-02-10] MEDS: Ferrous Gluconate 324 MG TAB PO SCH (08:49)
[2021-02-10] MEDS: Amlodipine 10 MG TAB PO SCH (08:49)
[2021-02-10] MEDS: Potassium Chloride 20 MEQ TAB PO SCH (08:49)
[2021-02-10] MEDS: Apixaban 5 MG TAB PO SCH ×2 (08:49→21:26)
[2021-02-10] MEDS: Fenofibrate Nanocrystallized 145 MG TAB PO SCH (08:50)
[2021-02-10] MEDS: Oxybutynin ER 5 MG TAB PO SCH (08:51)
[2021-02-10] MEDS: Finasteride 5 MG TAB PO SCH (08:51)
[2021-02-10] MEDS: Nystatin Powder 15 GM BOT TOP SCH ×2 (08:52→21:29)
[2021-02-10] MEDS ORDERED: Lisinopril 20 MG TAB PO SCH (12:45)
[2021-02-10] MEDS ORDERED: Polyethylene Glycol 3350 17 GM Packet PO PRN (20:59)
[2021-02-10] MEDS: Atorvastatin Calcium 20 MG TAB PO SCH (21:26)
[2021-02-11 05:16] LABS: #Basophils 0.1 thou/uL (0.0-0.2); #Eosinphils 0.3 thou/uL (0.0-0.7); #Monocytes 0.4 thou/uL (0.11-0.59); #Neutrophils 5.5 thou/uL (1.40-6.50); %Basophils 0.9 % (0.0-1.0); %Eosinophils 3.5 % (0.0-10.0); %Lymphocytes 24.4 % (21.0-51.0); %Monocytes 5.2 % (0.0-10.0); %Neutrophils 66.1 % (42.0-75.0); Hemoglobin 10.6 g/dL (14.0-18.0); Mean Corpuscular HGB CONC 34.4 g/dL (32.0-36.0); Mean Corpuscular Hemoglobin 33.4 pg (27.0-31.0); Mean Corpuscular Volume 97.1 fL (78.0-98.0); Mean Platelet Volume 7.9 fL (7.4-10.4); Platelet Count 199 thou/uL (130-400); RBC Distribution Width 14.3 % (11.5-14.5); Red Blood Cell (RBC) Count 3.18 mill/uL (4.70-6.10); White Blood Cell (WBC) Count 8.3 thou/uL (4.8-10.8)
[2021-02-11 05:39] LABS: Anion Gap 14 mmol/L (10-20); BUN (Urea Nitrogen) 24 mg/dL (8.4-25.7); Calc. Creatinine Clearance 0 mL/min (70-130); Calcium 8.7 mg/dL (7.8-10.44); Carbon Dioxide 27 mmol/L (23-31); Chloride 102 mmol/L (98-107); Glucose 101 mg/dL (83-110); Potassium 3.5 mmol/L (3.5-5.1); Sodium 139 mmol/L (136-145)
[2021-02-11] MEDS: Furosemide 100 MG/10 ML VIAL SLOW IVP SCH ×2 (06:13→14:15)
[2021-02-11] MEDS: Levothyroxine Sodium 125 MCG TAB PO SCH (06:13)
[2021-02-11] MEDS ORDERED: Cyclobenzaprine 10 MG TAB PO PRN (08:04)
[2021-02-11] MEDS ORDERED: Senokot S 8.6-50 MG TAB PO PRN (08:05)
[2021-02-11] MEDS ORDERED: HYDROcodone/Acetaminophen 5/325 mg Tablet PO PRN (08:05)
[2021-02-11] MEDS ORDERED: Sodium Chloride 0.65% Nasal 44 ML BOT EA NARE PRN (08:05)
[2021-02-11] MEDS ORDERED: Loperamide HCl 2 MG CAP PO PRN (08:05)
[2021-02-11] MEDS ORDERED: Cepastat Lozenges 1 LOZ PO PRN (08:05)
[2021-02-11] MEDS ORDERED: Ondansetron ODT 4 MG TAB PO PRN (08:05)
[2021-02-11] MEDS ORDERED: Loratadine 10 MG TAB PO PRN (08:05)
[2021-02-11] MEDS ORDERED: Calcium Carbonate 500 MG ChewTAB PO PRN (08:05)
[2021-02-11] MEDS ORDERED: Benzonatate 100 MG CAP PO PRN (08:05)
[2021-02-11] MEDS ORDERED: Bisacodyl 5 MG TAB PO PRN (08:05)
[2021-02-11] MEDS ORDERED: hydrALAZINE 20 MG/ML VIAL SLOW IVP PRN (08:05)
[2021-02-11] MEDS ORDERED: Ondansetron PF 4 MG/2 ML Vial IVP PRN (08:05)
[2021-02-11] MEDS ORDERED: GUAIFENESIN SF SOLN 200 MG/10 ML UDCUP PO PRN (08:05)
[2021-02-11] MEDS ORDERED: Melatonin 3 MG TAB PO PRN (08:06)
[2021-02-11] MEDS: Bisoprolol Fumarate 5 MG TAB PO SCH (09:34)
[2021-02-11] MEDS: Fenofibrate Nanocrystallized 145 MG TAB PO SCH (09:35)
[2021-02-11] MEDS: Ferrous Gluconate 324 MG TAB PO SCH (09:35)
[2021-02-11] MEDS: Apixaban 5 MG TAB PO SCH ×2 (09:36→21:58)
[2021-02-11] MEDS: Lisinopril 20 MG TAB PO SCH (09:36)
[2021-02-11] MEDS: Potassium Chloride 20 MEQ TAB PO SCH (09:37)
[2021-02-11] MEDS: Terazosin HCl 5 MG CAP PO SCH (09:38)
[2021-02-11] MEDS: Oxybutynin ER 5 MG TAB PO SCH (09:38)
[2021-02-11] MEDS: Finasteride 5 MG TAB PO SCH (09:39)
[2021-02-11] MEDS: Nystatin Powder 15 GM BOT TOP SCH ×2 (09:40→21:58)
[2021-02-11] MEDS: Amlodipine 10 MG TAB PO SCH (09:40)
[2021-02-11] MEDS: Atorvastatin Calcium 20 MG TAB PO SCH (21:58)
[2021-02-12 04:56] LABS: #Eosinphils 0.3 thou/uL (0.0-0.7); #Lymphocytes 2.3 thou/uL (1.20-3.40); #Monocytes 0.5 thou/uL (0.11-0.59); #Neutrophils 5.3 thou/uL (1.40-6.50); %Basophils 0.2 % (0.0-1.0); %Lymphocytes 27.4 % (21.0-51.0); %Monocytes 5.7 % (0.0-10.0); %Neutrophils 63.7 % (42.0-75.0); Hemoglobin 10.6 g/dL (14.0-18.0); Mean Corpuscular HGB CONC 34.1 g/dL (32.0-36.0); Mean Corpuscular Volume 96.8 fL (78.0-98.0); Mean Platelet Volume 7.9 fL (7.4-10.4); Platelet Count 197 thou/uL (130-400); RBC Distribution Width 14.5 % (11.5-14.5); Red Blood Cell (RBC) Count 3.22 mill/uL (4.70-6.10); White Blood Cell (WBC) Count 8.2 thou/uL (4.8-10.8)
[2021-02-12 05:13] LABS: Phosphorus 2.6 mg/dL (2.3-4.7)
[2021-02-12 05:15] LABS: Anion Gap 14 mmol/L (10-20); BUN (Urea Nitrogen) 22 mg/dL (8.4-25.7); Calc. Creatinine Clearance 0 mL/min (70-130); Calcium 8.8 mg/dL (7.8-10.44); Carbon Dioxide 27 mmol/L (23-31); Chloride 103 mmol/L (98-107); Glucose 102 mg/dL (83-110); Potassium 3.7 mmol/L (3.5-5.1); Sodium 140 mmol/L (136-145)
[2021-02-12] MEDS: Levothyroxine Sodium 125 MCG TAB PO SCH (06:19)
[2021-02-12] MEDS: Ferrous Gluconate 324 MG TAB PO SCH (09:38)
[2021-02-12] MEDS: Terazosin HCl 5 MG CAP PO SCH (09:38)
[2021-02-12] MEDS: Bisoprolol Fumarate 5 MG TAB PO SCH (09:39)
[2021-02-12] MEDS: Potassium Chloride 20 MEQ TAB PO SCH (09:39)
[2021-02-12] MEDS: Fenofibrate Nanocrystallized 145 MG TAB PO SCH (09:39)
[2021-02-12] MEDS: Oxybutynin ER 5 MG TAB PO SCH (09:39)
[2021-02-12] MEDS: Amlodipine 10 MG TAB PO SCH (09:40)
[2021-02-12] MEDS: Apixaban 5 MG TAB PO SCH ×2 (09:40→20:11)
[2021-02-12] MEDS: Furosemide 80 MG TAB PO SCH (09:40)
[2021-02-12] MEDS: Finasteride 5 MG TAB PO SCH (09:40)
[2021-02-12] MEDS: Lisinopril 20 MG TAB PO SCH (09:40)
[2021-02-12] MEDS: Nystatin Powder 15 GM BOT TOP SCH ×2 (09:41→20:11)
[2021-02-12] MEDS ORDERED: Artificial Tear Sol 15 ML BOT EA EYE PRN (13:28)
[2021-02-12] MEDS: Furosemide 40 MG TAB PO SCH (14:41)
[2021-02-12] MEDS: Atorvastatin Calcium 20 MG TAB PO SCH (20:11)
[2021-02-13] MEDS: Levothyroxine Sodium 125 MCG TAB PO SCH (05:05)
[2021-02-13] MEDS: Terazosin HCl 5 MG CAP PO SCH (08:02)
[2021-02-13] MEDS: Apixaban 5 MG TAB PO SCH ×2 (08:03→20:54)
[2021-02-13] MEDS: Amlodipine 10 MG TAB PO SCH (08:03)
[2021-02-13] MEDS: Finasteride 5 MG TAB PO SCH (08:03)
[2021-02-13] MEDS: Potassium Chloride 20 MEQ TAB PO SCH (08:03)
[2021-02-13] MEDS: Bisoprolol Fumarate 5 MG TAB PO SCH (08:03)
[2021-02-13] MEDS: Fenofibrate Nanocrystallized 145 MG TAB PO SCH (08:03)
[2021-02-13] MEDS: Furosemide 80 MG TAB PO SCH (08:03)
[2021-02-13] MEDS: Oxybutynin ER 5 MG TAB PO SCH (08:03)
[2021-02-13] MEDS: Ferrous Gluconate 324 MG TAB PO SCH (08:04)
[2021-02-13] MEDS: Lisinopril 20 MG TAB PO SCH (08:04)
[2021-02-13] MEDS: Nystatin Powder 15 GM BOT TOP SCH ×2 (08:05→20:54)
[2021-02-13] MEDS: Furosemide 40 MG TAB PO SCH (14:10)
[2021-02-13] MEDS: Atorvastatin Calcium 20 MG TAB PO SCH (20:54)
[2021-02-14] MEDS: Levothyroxine Sodium 125 MCG TAB PO SCH (06:27)
[2021-02-14] MEDS: Fenofibrate Nanocrystallized 145 MG TAB PO SCH (08:00)
[2021-02-14] MEDS: Lisinopril 20 MG TAB PO SCH (08:00)
[2021-02-14] MEDS: Ferrous Gluconate 324 MG TAB PO SCH (08:01)
[2021-02-14] MEDS: Furosemide 80 MG TAB PO SCH (08:01)
[2021-02-14] MEDS: Bisoprolol Fumarate 5 MG TAB PO SCH (08:01)
[2021-02-14] MEDS: Oxybutynin ER 5 MG TAB PO SCH (08:02)
[2021-02-14] MEDS: Potassium Chloride 20 MEQ TAB PO SCH (08:03)
[2021-02-14] MEDS: Amlodipine 10 MG TAB PO SCH (08:03)
[2021-02-14] MEDS: Apixaban 5 MG TAB PO SCH ×2 (08:03→20:45)
[2021-02-14] MEDS: Finasteride 5 MG TAB PO SCH (08:03)
[2021-02-14] MEDS: Nystatin Powder 15 GM BOT TOP SCH ×2 (08:04→20:53)
[2021-02-14] MEDS: Terazosin HCl 5 MG CAP PO SCH (08:07)
[2021-02-14] MEDS: Furosemide 40 MG TAB PO SCH (13:40)
[2021-02-14] MEDS: Atorvastatin Calcium 20 MG TAB PO SCH (20:45)
[2021-02-15] MEDS: Levothyroxine Sodium 125 MCG TAB PO SCH (05:41)
[2021-02-15] MEDS: Finasteride 5 MG TAB PO SCH (08:29)
[2021-02-15] MEDS: Ferrous Gluconate 324 MG TAB PO SCH (08:29)
[2021-02-15] MEDS: Apixaban 5 MG TAB PO SCH (08:30)
[2021-02-15] MEDS: Amlodipine 10 MG TAB PO SCH (08:30)
[2021-02-15] MEDS: Bisoprolol Fumarate 5 MG TAB PO SCH (08:31)
[2021-02-15] MEDS: Fenofibrate Nanocrystallized 145 MG TAB PO SCH (08:31)
[2021-02-15] MEDS: Lisinopril 20 MG TAB PO SCH (08:32)
[2021-02-15] MEDS: Oxybutynin ER 5 MG TAB PO SCH (08:32)
[2021-02-15] MEDS: Furosemide 80 MG TAB PO SCH (08:32)
[2021-02-15] MEDS: Nystatin Powder 15 GM BOT TOP SCH (08:32)
[2021-02-15] MEDS: Potassium Chloride 20 MEQ TAB PO SCH (08:33)
[2021-02-15] MEDS: Terazosin HCl 5 MG CAP PO SCH (08:33)
[2021-02-15 10:00] LABS: #Eosinphils 0.2 thou/uL (0.0-0.7); #Lymphocytes 1.4 thou/uL (1.20-3.40); #Monocytes 0.3 thou/uL (0.11-0.59); #Neutrophils 4.8 thou/uL (1.40-6.50); %Basophils 0.7 % (0.0-1.0); %Eosinophils 2.5 % (0.0-10.0); %Lymphocytes 21.2 % (21.0-51.0); %Monocytes 4.5 % (0.0-10.0); %Neutrophils 71.1 % (42.0-75.0); Hemoglobin 11.2 g/dL (14.0-18.0); Mean Corpuscular HGB CONC 33.9 g/dL (32.0-36.0); Mean Corpuscular Hemoglobin 32.7 pg (27.0-31.0); Mean Corpuscular Volume 96.4 fL (78.0-98.0); Mean Platelet Volume 8.1 fL (7.4-10.4); Platelet Count 195 thou/uL (130-400); RBC Distribution Width 14.5 % (11.5-14.5); Red Blood Cell (RBC) Count 3.42 mill/uL (4.70-6.10); White Blood Cell (WBC) Count 6.8 thou/uL (4.8-10.8)
[2021-02-15 10:17] LABS: Phosphorus 3.3 mg/dL (2.3-4.7)
[2021-02-15 10:18] LABS: ALT (SGPT) 7 U/L (8-55); AST (SGOT) 12 U/L (5-34); Albumin 3.7 g/dL (3.4-4.8); Alkaline Phosphatase 29 U/L (40-110); Anion Gap 13 mmol/L (10-20); BUN (Urea Nitrogen) 29 mg/dL (8.4-25.7); Bilirubin, Total 1.2 mg/dL (0.2-1.2); Calc. Creatinine Clearance 64 mL/min (70-130); Calcium 9.3 mg/dL (7.8-10.44); Carbon Dioxide 27 mmol/L (23-31); Chloride 102 mmol/L (98-107); Glucose 167 mg/dL (83-110); Magnesium 1.8 mg/dL (1.6-2.6); Potassium 3.8 mmol/L (3.5-5.1); Protein, Total 6.7 g/dL (5.8-8.1); Sodium 138 mmol/L (136-145)
[2021-02-15] MEDS: Furosemide 40 MG TAB PO SCH (13:38)
[2021-02-15 16:52] VITALS: BP 117/57; TEMP 98.3
== END 2021-02-15 20:00 | disposition short-term general hospital (02) | DRG 291 ==
LOC: ERS 00:24 → 2SW 03:30 → OBSVTOIN 18:39
PROVIDERS: ADMIT Internal Medicine; ATTEND Internal Medicine
PROC: 5A09357 Assistance with Respiratory Ventilation, Less than 24 Consecutive Hours, Continuous Positive Airway Pressure (ICD-10-PCS; principal; 2021-02-08)
DX: I13.0 Hypertensive heart and chronic kidney disease with heart failure and stage 1 through stage 4 chronic kidney disease, or unspecified chronic kidney disease (principal); J96.01 Acute respiratory failure with hypoxia; I50.33 Acute on chronic diastolic (congestive) heart failure; I48.20 Chronic atrial fibrillation, unspecified; N17.9 Acute kidney failure, unspecified; E03.9 Hypothyroidism, unspecified; G47.33 Obstructive sleep apnea (adult) (pediatric); Z20.822 Contact with and (suspected) exposure to COVID-19; D50.9 Iron deficiency anemia, unspecified; N40.0 Benign prostatic hyperplasia without lower urinary tract symptoms; K21.9 Gastro-esophageal reflux disease without esophagitis; I34.0 Nonrheumatic mitral (valve) insufficiency; E78.2 Mixed hyperlipidemia; Z66 Do not resuscitate; I35.0 Nonrheumatic aortic (valve) stenosis; I27.20 Pulmonary hypertension, unspecified; E11.22 Type 2 diabetes mellitus with diabetic chronic kidney disease; Z96.651 Presence of right artificial knee joint; E11.69 Type 2 diabetes mellitus with other specified complication; E66.9 Obesity, unspecified; N18.30 Chronic kidney disease, stage 3 unspecified; Z68.32 Body mass index [BMI] 32.0-32.9, adult; Z79.01 Long term (current) use of anticoagulants; Z88.1 Allergy status to other antibiotic agents; Z88.2 Allergy status to sulfonamides; Z88.8 Allergy status to other drugs, medicaments and biological substances; Z79.899 Other long term (current) drug therapy; Z86.73 Personal history of transient ischemic attack (TIA), and cerebral infarction without residual deficits
CPT/HCPCS: 36415; 36416; 71045; 80048; 80053; 83735; 83880; 84100; 84439; 84443; 84484; 85025; 93005; 93306; 93798; 94660; 96365; 96374; 96375; 96376; G0378; J1940; J3475; U0002; U0005

== ENCOUNTER 2021-06-20 16:43 | Inpatient (IN) | payer MEDICARE, OTHER ==
[2021-06-20] MEDS ORDERED: Labetalol HCl 100 MG/20 ML VIAL ONE (17:11)
[2021-06-20 17:19] LABS: #Lymphocytes 0.9 thou/uL (1.20-3.40); #Monocytes 0.7 thou/uL (0.11-0.59); #Neutrophils 11.5 thou/uL (1.40-6.50); %Basophils 0.1 % (0.0-1.0); %Eosinophils 0.1 % (0.0-10.0); %Lymphocytes 6.9 % (21.0-51.0); %Monocytes 5.3 % (0.0-10.0); %Neutrophils 87.6 % (42.0-75.0); Hemoglobin 14.7 g/dL (14.0-18.0); Mean Corpuscular HGB CONC 33.4 g/dL (32.0-36.0); Mean Corpuscular Hemoglobin 30.8 pg (27.0-31.0); Mean Corpuscular Volume 92.2 fL (78.0-98.0); Mean Platelet Volume 7.1 fL (7.4-10.4); Platelet Count 295 thou/uL (130-400); RBC Distribution Width 13.4 % (11.5-14.5); Red Blood Cell (RBC) Count 4.78 mill/uL (4.70-6.10); White Blood Cell (WBC) Count 13.1 thou/uL (4.8-10.8)
[2021-06-20] MEDS ORDERED: EPINEPHrine 1 MG/10 ML Abboject SYRINGE ONE (17:19)
[2021-06-20 17:35] LABS: Bacteria/HPF 4+ HPF (None Seen); Bilirubin Negative (Negative); Blood, Urine 3+ (Negative); Clarity Clear (Clear); Glucose, Urine (Dipstick) 500 mg/dL (Negative); Ketone, Urine Negative (Negative); Leukocyte 75 Leu/uL (Negative); Nitrite 1+ (Negative); Protein, Urine (Dipstick) 300 mg/dL (Neg-Trace); RBC/HPF 0-3 HPF (0-3); Specific Gravity, Urine 1.012 (1.002-1.036); Squamous Epithelial None Seen HPF (0-3); Urobilinogen Normal mg/dL (Less than 2); pH, Urine 7.5 (5.0-9.0)
[2021-06-20 17:36] LABS: WBC/HPF 21-50 HPF (0-3)
[2021-06-20 17:41] LABS: ALT (SGPT) 32 U/L (8-55); AST (SGOT) 69 U/L (5-34); Albumin 3.5 g/dL (3.4-4.8); Alkaline Phosphatase 51 U/L (40-110); Anion Gap 11 mmol/L (10-20); BUN (Urea Nitrogen) 18 mg/dL (8.4-25.7); Bilirubin, Total 0.2 mg/dL (0.2-1.2); CK (CPK) 2509 U/L (30-200); Calc. Creatinine Clearance 0 mL/min (70-130); Calcium 8.2 mg/dL (7.8-10.44); Carbon Dioxide 24 mmol/L (23-31); Chloride 107 mmol/L (98-107); Globulin 1.9 g/dL (2.4-3.5); Glucose 127 mg/dL (83-110); Magnesium 1.6 mg/dL (1.6-2.6); Potassium 3.9 mmol/L (3.5-5.1); Protein, Total 5.4 g/dL (5.8-8.1); Sodium 138 mmol/L (136-145)
[2021-06-20] MEDS ORDERED: Cefepime 2 GM VIAL ONE (17:49)
[2021-06-20] MEDS ORDERED: Vancomycin 1 GM/200 ML BAG ONE (17:49)
[2021-06-20 18:10] LABS: CKMB 8.6 ng/mL (0-6.6)
[2021-06-20] MEDS ORDERED: Rocuronium Bromide 10 MG/ML (10ML VIAL) ONE (18:40)
[2021-06-20] MEDS ORDERED: Propofol 1,000 MG/100 ML VIAL IV ONE (19:18)
[2021-06-20 19:19] LABS: Actual Bicarbonate (HCO3a) 21.2 mEq/L (22-28); Analyzer IN Cardio ER; Base Excess (BEa) -0.6 mEq/L (-2.0 to +3.0); CO2 Tension 27.4 mmHg (35.0-45.0); Calcium, Ionized (arterial) 1.18 mmol/L (1.12-1.30); Carboxyhemoglobin (COHb) 0.8 gm% (0.0-3.0); Hemoglobin (Hb) 13.5 g/dL (14.0-18.0); O2 Tension (PaO2), arterial 340.9 mmHg (> 70.0); Potassium - ABG Lab 3.16 mmol/L (3.70-5.30); pH, Arterial 7.51 (7.35-7.45)
[2021-06-20 19:22] LABS: Puncture Site LRA
[2021-06-20] MEDS ORDERED: Ondansetron ODT 4 MG TAB PO PRN (20:25)
[2021-06-20] MEDS ORDERED: Ondansetron PF 4 MG/2 ML Vial IVP PRN (20:25)
[2021-06-20] MEDS ORDERED: Acetaminophen 650 MG Suppository PR PRN (20:25)
[2021-06-20] MEDS ORDERED: Ventilator Sedation Protocol 1 EACH FS SCH (20:30)
[2021-06-20] MEDS ORDERED: Fentanyl CADD 100 ML IV SCH (20:45)
[2021-06-20] MEDS ORDERED: Lorazepam 2 MG/ML VIAL SLOW IVP PRN (20:45)
[2021-06-20] MEDS ORDERED: Propofol BOLUS 1,000 MG/100 ML VIAL IV PRN (20:45)
[2021-06-20] MEDS ORDERED: Morphine 2 MG/ML VIAL SLOW IVP PRN (20:45)
[2021-06-20] MEDS ORDERED: Fentanyl BOLUS 250 ML IVPB PRN (20:45)
[2021-06-20] MEDS ORDERED: DISCONTINUE PREVIOUS NARCOTIC PAIN MEDICATIONS AND BENZODIAZEPINES FS SCH (20:45)
[2021-06-20 21:01] LABS: SARS-CoV-2 NAA Rapid Test DETECTED (NotDetected)
[2021-06-20] MEDS ORDERED: Labetalol HCl 100 MG/20 ML VIAL SLOW IVP PRN (21:51)
[2021-06-20] MEDS ORDERED: hydrALAZINE 20 MG/ML VIAL SLOW IVP PRN (21:52)
[2021-06-20] MEDS ORDERED: Aspirin 81 mg Enteric Coated Tablet PO SCH (21:56)
[2021-06-20] MEDS ORDERED: Amlodipine 10 MG TAB PO SCH (22:00)
[2021-06-20] MEDS ORDERED: Lisinopril 5 MG TAB PO SCH (22:00)
[2021-06-20] MEDS ORDERED: Carvedilol 6.25 MG TAB PO SCH (22:00)
[2021-06-20] MEDS ORDERED: HumaLOG 300 UNITS/3 ML VIAL SC PRN (22:06)
[2021-06-20] MEDS ORDERED: Dextrose 50% Abboject 50 ML SYRINGE SLOW IVP PRN (22:06)
[2021-06-20] MEDS ORDERED: Dextrose 5% in Water 1,000 ML IV PRN (22:06)
[2021-06-20] MEDS ORDERED: Magnesium Sulfate 4 GM in Sodium Chloride 0.9% 250 ML 250 ML IVPB SCH (22:45)
[2021-06-20] MEDS ORDERED: Enoxaparin Sodium 120 MG/0.8 ML SYRINGE SC SCH (22:45)
[2021-06-20 23:41] LABS: Troponin I 0.195 ng/mL (< 0.028)
[2021-06-20 23:56] LABS: Lactic Acid 3.3 mmol/L (0.5-2.2)
[2021-06-21] MEDS: Sodium Chloride 0.9% 1,000 ML IV SCH (00:25)
[2021-06-21 04:00] LABS: #Lymphocytes 2.4 thou/uL (1.20-3.40); #Monocytes 1.1 thou/uL (0.11-0.59); #Neutrophils 12.9 thou/uL (1.40-6.50); %Basophils 0.2 % (0.0-1.0); %Eosinophils 0.1 % (0.0-10.0); %Lymphocytes 14.8 % (21.0-51.0); %Monocytes 6.6 % (0.0-10.0); %Neutrophils 78.3 % (42.0-75.0); Hemoglobin 12.6 g/dL (14.0-18.0); Mean Corpuscular HGB CONC 32.9 g/dL (32.0-36.0); Mean Corpuscular Hemoglobin 30.3 pg (27.0-31.0); Mean Corpuscular Volume 92.2 fL (78.0-98.0); Mean Platelet Volume 7.7 fL (7.4-10.4); Platelet Count 245 thou/uL (130-400); RBC Distribution Width 13.5 % (11.5-14.5); Red Blood Cell (RBC) Count 4.15 mill/uL (4.70-6.10); White Blood Cell (WBC) Count 16.5 thou/uL (4.8-10.8)
[2021-06-21 04:10] LABS: Lactic Acid 3.4 mmol/L (0.5-2.2)
[2021-06-21 04:23] LABS: Anion Gap 15 mmol/L (10-20); BUN (Urea Nitrogen) 25 mg/dL (8.4-25.7); Calc. Creatinine Clearance 65 mL/min (70-130); Calcium 9.5 mg/dL (7.8-10.44); Carbon Dioxide 26 mmol/L (23-31); Chloride 100 mmol/L (98-107); Glucose 131 mg/dL (83-110); Potassium 3.7 mmol/L (3.5-5.1); Sodium 137 mmol/L (136-145)
[2021-06-21] MEDS ORDERED: Sodium Chloride 0.9% 500 ML IV SCH ×2 (04:30→09:15)
[2021-06-21] MEDS ORDERED: Sodium Chloride 0.9% 1,000 ML IV SCH (04:30)
[2021-06-21] MEDS ORDERED: Amlodipine 10 MG TAB PO SCH (09:00)
[2021-06-21] MEDS ORDERED: Lisinopril 5 MG TAB PO SCH (09:00)
[2021-06-21] MEDS ORDERED: FLU VACC QS2021-22(65YR UP)/PF 240 MCG/0.7 ML SYRINGE IM ONE (09:00)
[2021-06-21] MEDS ORDERED: Enoxaparin Sodium 120 MG/0.8 ML SYRINGE SC SCH (09:00)
[2021-06-21] MEDS: Aspirin Chewable 81 MG TAB PO SCH (09:11)
[2021-06-21] MEDS: Carvedilol 6.25 MG TAB PO SCH ×2 (09:11→16:46)
[2021-06-21] MEDS: Pantoprazole 40 MG VIAL IVP SCH (09:14)
[2021-06-21] MEDS: Cefepime 1 GM in Sodium Chloride 0.9% 100 ML IVPB SCH ×2 (11:15→16:48)
[2021-06-21] MEDS: Propofol 1,000 MG/100 ML VIAL IV PRN ×2 (11:20→18:07)
[2021-06-21] MEDS ORDERED: Fentanyl CADD 100 ML ONE (12:44)
[2021-06-21] MEDS: Fentanyl CADD 100 ML IV SCH (12:47)
[2021-06-21 12:56] LABS: Troponin I 0.372 ng/mL (< 0.028)
[2021-06-21 13:17] LABS: Creatinine, Urine 178.66 mg/dL (63-166)
[2021-06-21 15:25] LABS: Critical Call Chem Troponin I DECREASING RESULT; Troponin I 0.353 ng/mL (< 0.028)
[2021-06-21] MEDS: Heparin 5,000 UNITS/ML VIAL SC SCH (19:58)
[2021-06-21] MEDS: Terazosin HCl 5 MG CAP PO SCH (19:59)
[2021-06-21] MEDS: Acetaminophen 325 MG TAB PO PRN (20:23)
[2021-06-22] MEDS ORDERED: Cefepime 1 GM in Sodium Chloride 0.9% 100 ML IVPB SCH (02:00)
[2021-06-22 04:07] LABS: #Eosinphils 0.1 thou/uL (0.0-0.7); #Lymphocytes 1.9 thou/uL (1.20-3.40); #Monocytes 0.8 thou/uL (0.11-0.59); #Neutrophils 14.2 thou/uL (1.40-6.50); %Basophils 0.2 % (0.0-1.0); %Eosinophils 0.5 % (0.0-10.0); %Lymphocytes 11.1 % (21.0-51.0); %Neutrophils 83.3 % (42.0-75.0); Hemoglobin 10.2 g/dL (14.0-18.0); Mean Corpuscular HGB CONC 33.6 g/dL (32.0-36.0); Mean Corpuscular Hemoglobin 31.3 pg (27.0-31.0); Mean Corpuscular Volume 93.1 fL (78.0-98.0); Mean Platelet Volume 7.3 fL (7.4-10.4); Platelet Count 217 thou/uL (130-400); RBC Distribution Width 13.4 % (11.5-14.5); Red Blood Cell (RBC) Count 3.25 mill/uL (4.70-6.10)
[2021-06-22 04:34] LABS: Phosphorus 4.7 mg/dL (2.3-4.7)
[2021-06-22 05:14] LABS: Anion Gap 12 mmol/L (10-20); BUN (Urea Nitrogen) 46 mg/dL (8.4-25.7); CK (CPK) 460 U/L (30-200); Calc. Creatinine Clearance 35 mL/min (70-130); Calcium 8.8 mg/dL (7.8-10.44); Carbon Dioxide 25 mmol/L (23-31); Chloride 101 mmol/L (98-107); Glucose 134 mg/dL (83-110); Magnesium 2.4 mg/dL (1.6-2.6); Potassium 3.4 mmol/L (3.5-5.1); Sodium 135 mmol/L (136-145)
[2021-06-22] MEDS ORDERED: Fentanyl CADD 100 ML ONE (08:24)
[2021-06-22] MEDS: Carvedilol 6.25 MG TAB PO SCH ×2 (08:34→17:34)
[2021-06-22] MEDS: Heparin 5,000 UNITS/ML VIAL SC SCH ×2 (08:34→19:35)
[2021-06-22] MEDS: Aspirin Chewable 81 MG TAB PO SCH (08:34)
[2021-06-22] MEDS: Fentanyl CADD 100 ML IV SCH (08:42)
[2021-06-22] MEDS: Pantoprazole 40 MG VIAL IVP SCH (12:04)
[2021-06-22] MEDS ORDERED: Furosemide 100 MG/10 ML VIAL SLOW IVP SCH (12:30)
[2021-06-22] MEDS: Cefepime 1 GM in Sodium Chloride 0.9% 100 ML IVPB SCH (13:28)
[2021-06-22 17:44] LABS: Vancomycin, Trough 19.7 ug/mL
[2021-06-22] MEDS ORDERED: VANCOMYCIN 2 GRAM/400 ML BAG 2 GM in Premix Bag 1 BAG IVPB SCH (18:45)
[2021-06-22] MEDS: Terazosin HCl 5 MG CAP PO SCH (19:34)
[2021-06-22] MEDS: Acetaminophen 325 MG TAB PO PRN (19:34)
[2021-06-23] MEDS: Cefepime 1 GM in Sodium Chloride 0.9% 100 ML IVPB SCH (03:21)
[2021-06-23 03:56] LABS: Anion Gap 14 mmol/L (10-20); BUN (Urea Nitrogen) 55 mg/dL (8.4-25.7); Calc. Creatinine Clearance 37 mL/min (70-130); Calcium 8.7 mg/dL (7.8-10.44); Carbon Dioxide 24 mmol/L (23-31); Chloride 103 mmol/L (98-107); Glucose 137 mg/dL (83-110); Potassium 3.6 mmol/L (3.5-5.1); Sodium 137 mmol/L (136-145)
[2021-06-23 04:38] LABS: Band 14 % (5-11); Eosinophils 1 % (0-10); Hemoglobin 10.1 g/dL (14.0-18.0); Lymphocytes 11 % (21-51); MDiff Complete? YES; Mean Corpuscular Hemoglobin 30.8 pg (27.0-31.0); Mean Corpuscular Volume 93.3 fL (78.0-98.0); Mean Platelet Volume 7.5 fL (7.4-10.4); Monocytes 4 % (0-10); Neutrophil 69 % (42-75); Platelet Count 212 thou/uL (130-400); RBC Distribution Width 13.3 % (11.5-14.5); Red Blood Cell (RBC) Count 3.29 mill/uL (4.70-6.10)
[2021-06-23] MEDS: Aspirin Chewable 81 MG TAB PO SCH (07:04)
[2021-06-23] MEDS: Heparin 5,000 UNITS/ML VIAL SC SCH ×2 (07:04→20:54)
[2021-06-23] MEDS: Carvedilol 6.25 MG TAB PO SCH ×2 (07:04→16:52)
[2021-06-23] MEDS: Pantoprazole 40 MG VIAL IVP SCH (08:33)
[2021-06-23] MEDS: Cefepime 2 GM in Sodium Chloride 0.9% 100 ML IVPB SCH (13:57)
[2021-06-23 18:34] LABS: Vancomycin, Random 29.9 ug/mL (See Comment)
[2021-06-23] MEDS: Furosemide 40 MG/4 ML VIAL SLOW IVP SCH (20:54)
[2021-06-23] MEDS: Terazosin HCl 5 MG CAP PO SCH (20:55)
[2021-06-23] MEDS: HumaLOG 300 UNITS/3 ML VIAL SC PRN (20:56)
[2021-06-23] MEDS: Acetaminophen 325 MG TAB PO PRN (23:49)
[2021-06-24] MEDS: Cefepime 2 GM in Sodium Chloride 0.9% 100 ML IVPB SCH (01:34)
[2021-06-24] MEDS: Sodium Chloride 0.9% 1,000 ML IV SCH (01:37)
[2021-06-24 04:23] LABS: Anion Gap 16 mmol/L (10-20); BUN (Urea Nitrogen) 77 mg/dL (8.4-25.7); Calc. Creatinine Clearance 37 mL/min (70-130); Calcium 9.2 mg/dL (7.8-10.44); Carbon Dioxide 23 mmol/L (23-31); Chloride 103 mmol/L (98-107); Glucose 166 mg/dL (83-110); Potassium 3.8 mmol/L (3.5-5.1); Sodium 138 mmol/L (136-145)
[2021-06-24 04:53] LABS: Band 22 % (5-11); Eosinophils 1 % (0-10); Hemoglobin 9.9 g/dL (14.0-18.0); MDiff Complete? YES; Mean Corpuscular HGB CONC 32.9 g/dL (32.0-36.0); Mean Corpuscular Hemoglobin 30.9 pg (27.0-31.0); Mean Corpuscular Volume 93.9 fL (78.0-98.0); Mean Platelet Volume 7.7 fL (7.4-10.4); Monocytes 7 % (0-10); Neutrophil 70 % (42-75); Platelet Count 222 thou/uL (130-400); RBC Distribution Width 13.3 % (11.5-14.5)
[2021-06-24] MEDS: HumaLOG 300 UNITS/3 ML VIAL SC PRN ×5 (05:02→21:01)
[2021-06-24 05:12] VITALS: BMI 31.7
[2021-06-24] MEDS: Carvedilol 6.25 MG TAB PO SCH (08:31)
[2021-06-24] MEDS: Heparin 5,000 UNITS/ML VIAL SC SCH ×2 (08:32→21:02)
[2021-06-24] MEDS: Aspirin Chewable 81 MG TAB PO SCH (08:32)
[2021-06-24] MEDS: Furosemide 40 MG/4 ML VIAL SLOW IVP SCH ×2 (08:32→21:02)
[2021-06-24] MEDS: Pantoprazole 40 MG VIAL IVP SCH (10:41)
[2021-06-24] MEDS: cefTRIAXone\\ROCEPHIN 1 GM in Sodium Chloride 0.9% 100 ML IVPB SCH (14:31)
[2021-06-24] MEDS ORDERED: Amlodipine 5 MG TAB PO SCH (16:00)
[2021-06-24] MEDS: Terazosin HCl 5 MG CAP PO SCH (21:02)
[2021-06-24] MEDS ORDERED: Morphine 4 MG/ML VIAL SLOW IVP PRN (21:45)
[2021-06-25] MEDS: HumaLOG 300 UNITS/3 ML VIAL SC PRN ×2 (00:15→04:39)
[2021-06-25 04:11] LABS: Band 19 % (5-11); Hemoglobin 10.3 g/dL (14.0-18.0); Lymphocytes 3 % (21-51); MDiff Complete? YES; Mean Corpuscular HGB CONC 32.6 g/dL (32.0-36.0); Mean Corpuscular Hemoglobin 30.8 pg (27.0-31.0); Mean Corpuscular Volume 94.4 fL (78.0-98.0); Mean Platelet Volume 7.7 fL (7.4-10.4); Metamyelocyte 1 % (0-0); Monocytes 5 % (0-10); Myelocyte 1 % (0-0); Neutrophil 70 % (42-75); Platelet Count 245 thou/uL (130-400); Platelet Morphology Comment Appears Adequate; RBC Distribution Width 13.4 % (11.5-14.5); Red Blood Cell (RBC) Count 3.36 mill/uL (4.70-6.10); Toxic Granulation SLIGHT
[2021-06-25 04:28] LABS: Anion Gap 15 mmol/L (10-20); BUN (Urea Nitrogen) 97 mg/dL (8.4-25.7); CK (CPK) 104 U/L (30-200); Calc. Creatinine Clearance 39 mL/min (70-130); Calcium 9.5 mg/dL (7.8-10.44); Carbon Dioxide 26 mmol/L (23-31); Chloride 105 mmol/L (98-107); Glucose 181 mg/dL (83-110); Potassium 3.7 mmol/L (3.5-5.1); Sodium 142 mmol/L (136-145)
[2021-06-25] MEDS ORDERED: Pantoprazole 40 MG GRANULES PACKET PO SCH (09:00)
[2021-06-25] MEDS ORDERED: Lorazepam 2 MG/ML VIAL SLOW IVP PRN ×2 (09:17→11:52)
[2021-06-25] MEDS: Morphine 4 MG/ML VIAL SLOW IVP PRN ×2 (12:07→15:36)
[2021-06-25] MEDS ORDERED: Amlodipine 10 MG TAB PO SCH (14:15)
[2021-06-25] MEDS ORDERED: Metolazone 5 MG TAB PO SCH (14:15)
[2021-06-25] MEDS: Aspirin Chewable 81 MG TAB PO SCH (16:25)
[2021-06-25] MEDS: Furosemide 40 MG/4 ML VIAL SLOW IVP SCH ×2 (16:25→19:25)
[2021-06-25] MEDS: Carvedilol 6.25 MG TAB PO SCH ×3 (16:25→19:24)
[2021-06-25] MEDS: Heparin 5,000 UNITS/ML VIAL SC SCH ×2 (16:26→19:25)
[2021-06-25] MEDS: cefTRIAXone\\ROCEPHIN 1 GM in Sodium Chloride 0.9% 100 ML IVPB SCH (16:30)
[2021-06-25 16:54] VITALS: TEMP 99.3
[2021-06-25 19:25] VITALS: BP 175/86
[2021-06-25] MEDS: Terazosin HCl 5 MG CAP PO SCH (19:25)
[2021-06-25] MEDS ORDERED: Scopolamine 1.5 mg/72 hour Patch TD SCH (21:45)
[2021-06-26] MEDS ORDERED: Amlodipine 10 MG TAB PO SCH (09:00)
== END 2021-06-25 22:16 | disposition expired | DRG 870 ==
LOC: ERS 16:43 → CCU 19:25 → T4-B 06-25 16:46
PROVIDERS: ADMIT Student in an Organized Health Care Education/Training Program; ATTEND Internal Medicine
PROC: 5A1955Z Respiratory Ventilation, Greater than 96 Consecutive Hours (ICD-10-PCS; principal; 2021-06-20)
PROC: 0BH17EZ Insertion of Endotracheal Airway into Trachea, Via Natural or Artificial Opening (ICD-10-PCS; 2021-06-20)
PROC: 0D9670Z Drainage of Stomach with Drainage Device, Via Natural or Artificial Opening (ICD-10-PCS; 2021-06-20)
PROC: 3E033XZ Introduction of Vasopressor into Peripheral Vein, Percutaneous Approach (ICD-10-PCS; 2021-06-20)
PROC: 8E0ZXY6 Isolation (ICD-10-PCS; 2021-06-20)
PROC: 5A12012 Performance of Cardiac Output, Single, Manual (ICD-10-PCS; 2021-06-20)
DX: A41.50 Gram-negative sepsis, unspecified (principal); U07.1 COVID-19; J96.00 Acute respiratory failure, unspecified whether with hypoxia or hypercapnia; I50.33 Acute on chronic diastolic (congestive) heart failure; N17.0 Acute kidney failure with tubular necrosis; I21.A1 Myocardial infarction type 2; G92.9 Unspecified toxic encephalopathy; G93.41 Metabolic encephalopathy; R65.21 Severe sepsis with septic shock; N39.0 Urinary tract infection, site not specified; I42.9 Cardiomyopathy, unspecified; I48.20 Chronic atrial fibrillation, unspecified; I13.0 Hypertensive heart and chronic kidney disease with heart failure and stage 1 through stage 4 chronic kidney disease, or unspecified chronic kidney disease; M62.82 Rhabdomyolysis; G93.1 Anoxic brain damage, not elsewhere classified; I49.01 Ventricular fibrillation; Z66 Do not resuscitate; Z51.5 Encounter for palliative care; Z23 Encounter for immunization; I16.0 Hypertensive urgency; I35.0 Nonrheumatic aortic (valve) stenosis; N18.30 Chronic kidney disease, stage 3 unspecified; E11.22 Type 2 diabetes mellitus with diabetic chronic kidney disease; E03.9 Hypothyroidism, unspecified; E78.5 Hyperlipidemia, unspecified; G47.33 Obstructive sleep apnea (adult) (pediatric); E66.9 Obesity, unspecified; N40.0 Benign prostatic hyperplasia without lower urinary tract symptoms; I34.0 Nonrheumatic mitral (valve) insufficiency; R29.6 Repeated falls; I46.2 Cardiac arrest due to underlying cardiac condition; Z96.651 Presence of right artificial knee joint; E87.6 Hypokalemia; T42.75XA Adverse effect of unspecified antiepileptic and sedative-hypnotic drugs, initial encounter; G93.89 Other specified disorders of brain; Z88.1 Allergy status to other antibiotic agents; Z88.2 Allergy status to sulfonamides; Z88.6 Allergy status to analgesic agent; Z79.82 Long term (current) use of aspirin; Z79.899 Other long term (current) drug therapy; Z78.1 Physical restraint status; Z95.2 Presence of prosthetic heart valve; Z99.89 Dependence on other enabling machines and devices; Z98.890 Other specified postprocedural states; Z68.31 Body mass index [BMI] 31.0-31.9, adult; Z86.16 Personal history of COVID-19; Z79.890 Hormone replacement therapy; Z79.01 Long term (current) use of anticoagulants; M17.11 Unilateral primary osteoarthritis, right knee
CPT/HCPCS: 31500; 36415; 36416; 36600; 51701; 70450; 71045; 80048; 80053; 80202; 81003; 81015; 82550; 82553; 82570; 82805; 83605; 83735; 84100; 84156; 84300; 84443; 84484; 84540; 85025; 87040; 87077; 87086; 87149; 87186; 90471; 90662; 92950; 93005; 93306; 94002; 94003; 95816; 95819; 95957; 96365; 96366; 96367; 96368; 96375; C9113; G0008; J0171; J0692; J0696; J1644; J1650; J1940; J2060; J2270; J2704; J3010; J3370; J3475; J3490; J7030; J7050; U0002